=== PATIENT | female | born 1960 | race Caucasian/White ===

== ENCOUNTER 2016-09-28 13:03 | Emergency (ER) | payer OTHER ==
[~2016-09-28] VITALS: Ht 172.7 cm; Wt 93.0 kg
[~2016-09-28 13:03] MED LIST: AZITHROMYCIN250 MG PO; CLONIDINE HCL0.2 MG PO; LISINOPRIL20 MG PO; METOPROLOL SUCC25 MG PO; PERCOCET 5-3251 EACH PO; PRAVASTATIN SOD10 MG; TRAMADOL HCL50 MG PO; TRAZODONE HCL50 MG; VICODIN 5-5001 EACH PO; ZANTAC150 MG PO
[2016-09-28] MEDS ORDERED: ZOFRAN ODT4 MG PO (14:53)
== END 2016-09-28 15:06 | disposition home or self-care (01) ==
LOC: ED 13:03
DX: S09.90XA Unspecified injury of head, initial encounter (principal); F10.10 Alcohol abuse, uncomplicated; I10 Essential (primary) hypertension; E78.00 Pure hypercholesterolemia, unspecified; F17.200 Nicotine dependence, unspecified, uncomplicated; W01.198A Fall on same level from slipping, tripping and stumbling with subsequent striking against other object, initial encounter; Z90.49 Acquired absence of other specified parts of digestive tract; Z88.0 Allergy status to penicillin; Z79.899 Other long term (current) drug therapy
CPT/HCPCS: 70450; 96372; 99284; J1885

== ENCOUNTER 2017-03-26 23:13 | Emergency (ER) | payer OTHER ==
[~2017-03-26] VITALS: Ht 172.7 cm; Wt 93.0 kg
[~2017-03-26 23:13] MED LIST changes: +ZOFRAN ODT4 MG PO
--- OUTSIDE RECORDS SUMMARY | 2017-03-27 00:01 | XMS | Clinical Summary ---
Demographics + + + | Address | [address] | | | [place] [address] | + + + | Home Phone | | + + + | Preferred Language | Unknown | + + + | Marital Status | Single | + + + | Mandaeism Affiliation | Unknown | + + + | Race | White | + + + | Ethnic Group | Not or | + + + Author + + + | Author | [facility] | + + + | Organization | [facility] | + + + | Address | Unknown | + + + | Phone | Unavailable | + + + Support +------+ +---------+ + | Name | Relationship | Address | Phone | +------+ +---------+ + ECON | Unknown | | +------+ +---------+ + Care Team Providers + +------+ + | Care Magnetic Tape Composer Operator Name | Role | Phone | + +------+ + | Veronica Galan | PP | Unavailable | + +------+ + Source Comments JAMIE is fully live on both [facility] and [facility] Allergies + + + + + + | Active Allergy | Reactions | Severity | Noted | Comments | | | | | Date | | + + + + + + | Penicillin | Rash | | 20 | | | | | | 17 | | + + + + + + Current Medications + + +--------+---------+------+------+-------+ | Prescription | Sig. | Disp. | Refills | Star | End | Statu | | | | | | t | Date | s | | | | | | Date | | | + + +--------+---------+------+------+-------+ | tretinoin 0.025 % | Apply topically at | 20 g | 11 | 05/0 | | Activ | | topical cream | bedtime. Wash face | | | 5/20 | | e | | | with mild soap. Pat | | | 17 | | | | | dry. Wait 20-30 min | | | | | | | | to apply. Avoid | | | | | | | | eyes, nostrils, & | | | | | | | | mouth. | | | | | | + + +--------+---------+------+------+-------+ Active Problems Not on file Social History + +-------+ +--------+------+ | Tobacco Use | Types | Packs/Day | Years | Date | | | | | Used | | + +-------+ +--------+------+ | Current Every Day | | | | | | Smoker | | | | | + +-------+ +--------+------+ + + +---------+ + | Alcohol Use | Drinks/We | oz/Week | Comments | | | ek | | | + + +---------+ + | Yes | 1 | 0.6 | | | | Standard | | | | | drinks or | | | | | | | | | | equivalen | | | | | t | | | + + +---------+ + + + + | Sex Assigned at | Date Recorded | | | | + + + | Not on file | | + + + Last Filed Vital Signs + + + + | Vital Sign | Reading | Time Taken | + + + + | Blood Pressure | - | - | + + + + | Pulse | - | - | + + + + | Temperature | - | - | + + + + | Respiratory Rate | - | - | + + + + | Oxygen Saturation | - | - | + + + + | Inhaled Oxygen | - | - | | Concentration | | | + + + + | Weight | 94.3 kg (208 lb) | 07/17/2016 10:53 AM PDT | + + + + | Height | 171.5 cm (5' 7.5") | 07/17/2016 10:53 AM PDT | + + + + | Body Mass Index | 32.1 | 07/17/2016 10:53 AM PDT | + + + + Plan of Treatment + + + + + | Health Maintenance | Due Date | Last Done | Comments | + + + + + | INFLUENZA VACCINE | | | | | (FLU SHOT) | 7 | | | + + + + + Results Not on filefrom Last 3 Months
--- OUTSIDE RECORDS SUMMARY | 2017-03-27 00:01 | XMS | Clinical Summary ---
Demographics + + + | Address | [address] | | | [place] [address] | + + + | Home Phone | | + + + | Preferred Language | Unknown | + + + | Marital Status | Single | + + + | Cheondoism Affiliation | Unknown | + + + | Race | White | + + + | Ethnic Group | Not or | + + + Author + + + | Author | [facility] | + + + | Organization | [facility] | + + + | Address | Unknown | + + + | Phone | Unavailable | + + + Support +------+ +---------+ + | Name | Relationship | Address | Phone | +------+ +---------+ + ECON | Unknown | | +------+ +---------+ + Care Team Providers + +------+ + | Care Retail Performance Specialist Name | Role | Phone | + +------+ + | Veronica Galan | PP | Unavailable | + +------+ + Source Comments JAMIE is fully live on both [facility] Amb[facility] and [facility] InPatient.[facility] Allergies + + + + + + [...]
== END 2017-03-27 00:40 | disposition home or self-care (01) ==
LOC: ED 23:13
DX: S00.11XA Contusion of right eyelid and periocular area, initial encounter (principal); I10 Essential (primary) hypertension; E78.00 Pure hypercholesterolemia, unspecified; F17.200 Nicotine dependence, unspecified, uncomplicated; Z90.49 Acquired absence of other specified parts of digestive tract; Z88.0 Allergy status to penicillin; Z79.899 Other long term (current) drug therapy; W01.0XXA Fall on same level from slipping, tripping and stumbling without subsequent striking against object, initial encounter; Y93.02 Activity, running
CPT/HCPCS: 70450; 99284

== ENCOUNTER 2019-09-23 02:24 | Emergency (ER) | payer OTHER ==
[~2019-09-23] VITALS: Ht 172.7 cm; Wt 97.1 kg
--- OUTSIDE RECORDS SUMMARY | ~2019-09-23 | XMS | Clinical Summary ---
Demographics + + + | Address | [address] | | | [place] [address] | + + + | Home Phone | | + + + | Preferred Language | Unknown | + + + | Marital Status | Single | + + + | Episcopal Affiliation | Unknown | + + + | Race | White | + + + | Ethnic Group | Not or | + + + Author + + + | Author | [facility] | + + + | Organization | [facility] | + + + | Address | Unknown | + + + | Phone | Unavailable | + + + Support + + +---------+ + | Name | Relationship | Address | Phone | + + +---------+ + | Theodore Rodriguez | ECON | Unknown | | + + +---------+ + Care Team Providers + +------+ + | Care Labor Delivery Specialist Name | Role | Phone | + +------+ + | Veronica Galan | PCP | | + +------+ + Source Comments JAMIE is fully live on both [facility] and [facility] Allergies + + + + + + | Active Allergy | Reactions | Severity | Noted | Comments | | | | | Date | | + + + + + + | Penicillin | Rash | | 05//20 | | | | | | 17 | | + + + + + + Medications + + + +---------+------+------+-------+ | Medication | Sig | Dispensed | Refills | Star | End | Statu | | | | | | t | Date | s | | | | | | Date | | | + + + +---------+------+------+-------+ | tretinoin 0.025 % | Apply topically [...] | | | | | + + + +---------+------+------+-------+ Active Problems Not on file Social History + +-------+ +--------+------+ | Tobacco Use | Types | Packs/Day | Years | Date | | | | | Used | | + +-------+ +--------+------+ | Current Every Day | | | | | | Smoker | | | | | + +-------+ +--------+------+ + + +---------+ + | Alcohol Use | Drinks/Week | oz/Week | Comments | + + +---------+ + | Yes | 1 Standard drinks | 1.0 | | | | or equivalent | | | + + +---------+ + + + + | Sex Assigned at | Date Recorded | | | | + + + | Not on file | | + + + + + + + | Job Start Date | Occupation | Industry | + + + + | Not on file | Not on file | Not on file | + + + + + + + + | Travel History | Travel Start | Travel End | + + + + + + | No recent travel history available. | + + Last Filed Vital Signs + + + + + | Vital Sign | Reading | Time Taken | Comments | + + + + + | Blood Pressure | - | - | | + + + + + | Pulse | - | - | | + + + + + | Temperature | - | - | | + + + + + | Respiratory Rate | - | - | | + + + + + | Oxygen Saturation | - | - | | + + + + + | Inhaled Oxygen | - | - | | | Concentration | | | | + + + + + | Weight | 94.3 kg (208 lb) | 07/17/2016 10:53 AM | | | | | PDT | | + + + + + | Height | 171.5 cm (5' 7.5") | 07/17/2016 10:53 AM | | | | | PDT | | + + + + + | Body Mass Index | 32.1 | 07/17/2016 10:53 AM | | | | | PDT | | + + + + + Plan of Treatment + + + + + | Health Maintenance | Due Date | Last Done | Comments | + + + + + | Pneumococcal | | | | | vaccination (1 of 1 | 8 | | | | - PPSV23) | | | | + + + + + | Influenza (Flu) | | | | | vaccination (#1) | 9 | | | + + + + + Results Not on filefrom Last 3 Months Insurance + +--------+ +--------+-------+---------+--------+ | Payer | Benefi | Subscriber | Effect | Phone | Address | Type | | | t Plan | ID | brianna | | | | | | / | | Dates | | | | | | Group | | | | | | + +--------+ +--------+-------+---------+--------+ | AIRVEYOR OPERATOR MEDICAID | AIRVEYOR OPERATOR | xxxxxxxx | Effect | | | Medica | | | EAST[place] | | [place] | | | id | | | [place] | | for | | | | | | | | all | | | | | | | | dates | | | | + +--------+ +--------+-------+---------+--------+ + +--------+ +--------+ + + | Guarantor Name | Accoun | Relation to | Date | Phone | Billing Address | | | t Type | Patient | of | | | | | | | | | | + +--------+ +--------+ + + | Anitha Ragland | Person [birth year] Self [birth year] | [address] | | | al/Fam | | 1961 | [phone] | [address] [place] | | | hilario | | | 2 (Home) | [phone] | | | | | [phone] | | | | | | | 0 (Work) | | + +--------+ +--------+ + +
--- OUTSIDE RECORDS SUMMARY | ~2019-09-23 | XMS | Encounter Summary ---
Demographics + + + | Address | [address] | | | [place] [address] | + + + | Home Phone | | + + + | Preferred Language | Unknown | + + + | Marital Status | Single | + + + | Islam Affiliation | Unknown | + + + | Race | White | + + + | Ethnic Group | Not or | + + + Author + + + | Author | [facility] | + + + | Organization | [facility] | + + + | Address | Unknown | + + + | Phone | Unavailable | + + + Support + + +---------+ + | Name | Relationship | Address | Phone | + + +---------+ + | Theodore Rodriguez | ECON | Unknown | | + + +---------+ + Care Team Providers + +------+ + | Care Ornament Stapler Name | Role | Phone | + +------+ + | Veronica Galan | PCP | | + +------+ + Encounter Details +--------+ + + + + | Date | Type | Department | Care Team | Description | +--------+ + + + + | 06/10/ | Document-Sc | Dermatology at | [facility] | | | 2017 | anned | [facility] | [facility] | | | | | Clinic [address] | | | | | [address] [place] | | | | | | [address] | | | | | | [phone] | | | +--------+ + + + + Social History + +-------+ +--------+------+ | Tobacco Use | Types | Packs/Day | Years | Date | | | | | Used | | + +-------+ +--------+------+ | Never Assessed | | | | | + +-------+ +--------+------+ + + + | Sex Assigned at [...] recent travel history available. | + + documented as of this encounter Plan of Treatment Not on filedocumented as of this encounter Visit Diagnoses Not on filedocumented in this encounter"
--- OUTSIDE RECORDS SUMMARY | ~2019-09-23 | XMS | Encounter Summary ---
Demographics + + + | Address | [address] | | | [place] [address] | + + + | Home Phone | | + + + | Preferred Language | Unknown | + + + | Marital Status | Single | + + + | Church Affiliation | Unknown | + + + | Race | White | + + + | Ethnic Group | Not or | + + + Author + + + | Author | [facility] | + + + | Organization | [facility] | + + + | Address | Unknown | + + + | Phone | Unavailable | + + + Support + + +---------+ + | Name | Relationship | Address | Phone | + + +---------+ + | Theodore Rodriguez | ECON | Unknown | | + + +---------+ + Care Team Providers + +------+ + | Care Dray Driver Name | Role | Phone | + [...] | | | skin | medicine | [place], [place] | | | | | | [address] | [address] | | | | | | [address] | | | | | | | [address] | | | | | | | [place], | | | | | | | [place] [address] | | | | | | | Phone: | | | | | | | [phone] | | | | | | | Fax: | | | | | | | [phone] | | +--------+ + + + + + Encounter Details +--------+---------+ + + + | Date | Type | Department | Care Team | Description | +--------+---------+ + + + | 07/17/ | Office | Dermatology at | [facility] | Multiple nevi | | 2017 | Visit | [facility] | [facility] | (Primary Dx); | | | | Clinic [address] | | [address]aceous | | | | [address] [place] | | hyperplasia; Other | | | | [address] | | seborrheic keratosis | | | | [phone] | | | +--------+---------+ + + + [...] skin compla ints. She grew up in [place] and [facility]. They have history of tanning bed [...] or fail to improve. Johanna Elena MD Welcome Hostess Department of Dermatology [facility] & Science [place] Electronically signed by Johanna Elena MD at 2016 1:33 PM PDTdocumented in this encounter Plan of Treatment Not on filedocumented as of this encounter Procedures + +--------+ + + + | Procedure Name | Priori | Date/Time | Associated Diagnosis | Comments | | | ty | | | | + +--------+ + + + | [place] DESTRUC BENIGN | Routin | 07/17/2016 | [...]
--- OUTSIDE RECORDS SUMMARY | ~2019-09-23 | XMS | Clinical Summary ---
Demographics + + + | Address | [address] | | | [place] [address] | + + + | Home Phone | | + + + | Preferred Language | Unknown | + + + | Marital Status | Single | + + + | Yarsani Affiliation | Unknown | + + + | Race | White | + + + | Ethnic Group | Not or | + + + Author + + + | Author | [facility] | + + + | Organization | [facility] | + + + | Address | Unknown | + + + | Phone | Unavailable | + + + Support + + +---------+ + | Name | Relationship | Address | Phone | + + +---------+ + | Theodore Rodriguez | ECON | Unknown | | + + +---------+ + Care Team Providers + +------+ + | Care Ballroom Dancer Name | Role | Phone | + +------+ + | Veronica Galan | PCP | | + +------+ + Source Comments JAMIE is fully live on both [facility] Ambulatory and [facility] InPatient.[facility] Allergies + + + [...] | | | + +--------+ +--------+-------+---------+--------+ | INSTRUCTOR ADJUNCT SURGICAL TECHNICIAN MEDICAID | INSTRUCTOR ADJUNCT SURGICAL TECHNICIAN | xxxxxxxx | Effect | | [...] | | al/Fam | | 1961 | [phone] | [address] [place] | | | hilario | | | 2 (Home) | [address] | | | | | | [phone] | | | | | | | 0 (Work) | | + +--------+ +--------+ + +
--- OUTSIDE RECORDS SUMMARY | ~2019-09-23 | XMS | Encounter Summary ---
Demographics + + + | Address | [address] | | | [place] [address] | + + + | Home Phone | | + + + | Preferred Language | Unknown | + + + | Marital Status | Single | + + + | Zoroastrianism Affiliation | Unknown | + + + | Race | White | + + + | Ethnic Group | Not or | + + + Author + + + | Author | [facility] | + + + | Organization | [facility] | + + + | Address | Unknown | + + + | Phone | Unavailable | + + + Support + + +---------+ + | Name | Relationship | Address | Phone | + + +---------+ + | Theodore Rodriguez | ECON | Unknown | | + + +---------+ + Care Team Providers + +------+ + | Care Elevator Service Mechanic Name | Role | Phone | + [...] | | | skin | medicine | [place], [place] | | | | | | [address] | [address] | | | | | | [address] | | | | | | | [address] | | | | | | | [place], | | | | | | | [place] [address] | | | | | | | Phone: | | | | | | | [phone] | | | | | | | Fax: | | | | | | | [phone] | | +--------+ + + + + + Encounter Details +--------+---------+ + + + | Date | Type | Department | Care Team | Description | +--------+---------+ + + + | 07/17/ | Office | Dermatology at | [facility] | Multiple nevi | | 2017 | Visit | [facility] | [facility] | (Primary Dx); | | | | Clinic [address] | | Se[address]aceous | | | | [address] [place] | | hyperplasia; Other | | | | [address] | | seborrheic keratosis | | | | [phone] | | | +--------+---------+ + + + [...] skin compla ints. She grew up in [place] and [facility]. They have [...] or fail to improve. Johanna Elena MD Paint Line Operator Department of Dermatology [facility] [place] Electronically signed by Johanna Elena MD at 2016 1:33 PM PDTdocumented in this encounter Plan of Treatment Not on filedocumented as of this encounter Procedures + +--------+ + + + | Procedure Name | Priori | Date/Time | Associated Diagnosis | Comments | | | ty | | | | + +--------+ + + + | IA DESTRUC BENIGN | Routin | 07/17/2016 | [...]
--- OUTSIDE RECORDS SUMMARY | ~2019-09-23 | XMS | Encounter Summary ---
Demographics + + + | Address | [address] | | | [place] [address] | + + + | Home Phone | | + + + | Preferred Language | Unknown | + + + | Marital Status | Single | + + + | Uatsdin Affiliation | Unknown | + + + [...] Team Providers + +------+ + | Care Subassemblies Wirer Name | Role | Phone | + +------+ + | Veronica Galan | PCP | | + +------+ + Encounter Details +--------+ + + + + | Date | Type | Department | Care Team | Description | +--------+ + + + + | 06/10/ | Document-Sc | Dermatology at | [facility] | | | 2017 | anned | [facility] | [facility] | | | | | Clinic [address] | | | | | [address] [place] | | | | | | [address] | | | | | | [phone] | | | +--------+ + + + [...]
[~2019-09-23 02:24] MED LIST changes: +CRUTCH1 EACH MISC; +FLUOXETINE HCL60 MG PO; +FLUTICASONE P15.8 ML NAS; +GABAPENTIN600 MG PO; +HYDROMORPHONE HC4 MG PO; -LISINOPRIL20 MG PO; +LISINOPRIL40 MG PO; +NEURONTIN300 MG PO; +NICOTINE PATCH1 EAC1 TD; +NORCO 5-325 TA1 EACH PO; +NORCO 7.5-3251 EACH PO; +OXYCODONE HCL5 MG PO; -PRAVASTATIN SOD10 MG; +PRAVASTATIN SOD40 MG PO; +VENTOLIN HFA18 GM INH; +XARELTO10 MG PO; +ZANTAC 7575 MG PO
--- OUTSIDE RECORDS SUMMARY | 2019-09-23 02:26 | XMS ---
PreManage Notification: TONEY HAY Security Veterinary Assistant Technician Events No recent Security Events currently on file CRITERIA MET - PDMP CARE PROVIDERS CHRISTOFER NEGRON Physician Dat Instructor 07/17/2016-Current PHONE: Unknown Gautam has no Care Guidelines for this patient. [facility] VISIT COUNT (12 MO.) 1 [facility] TOTAL 1 NOTE: Visits indicate total known visits. ED/UCC VISIT TRACKING (12 MO.) 09/23/2019 02:24 [facility] [place] TYPE: Emergency COMPLAINT: - COUGH INPATIENT VISIT TRACKING (12 MO.) No inpatient visits to display in this time frame [email or web address]
[2019-09-23] MEDS ORDERED: GUAIFENESIN AC473 ML PO (02:50)
== END 2019-09-23 03:09 | disposition home or self-care (01) ==
LOC: ED 02:24
DX: R05 Cough (principal); I10 Essential (primary) hypertension; F17.200 Nicotine dependence, unspecified, uncomplicated; Z91.030 Bee allergy status; Z88.0 Allergy status to penicillin; Z79.899 Other long term (current) drug therapy
CPT/HCPCS: 99283; C9803; U0002

== ENCOUNTER 2019-09-23 16:14 | Observation (INO) | payer OTHER ==
[~2019-09-23] VITALS: Ht 172.7 cm; Wt 101.6 kg
--- OUTSIDE RECORDS SUMMARY | ~2019-09-23 | XMS | Clinical Summary ---
Demographics + + + | Address | [address] | | | [place] [address] | + + + | Home Phone | | + + + | Preferred Language | Unknown | + + + | Marital Status | Single | + + + | Presybeterian Affiliation | Unknown | + + + | Race | White | + + + | Ethnic Group | Not or | + + + Author + + + | Author | [facility] | + + + | Organization | [facility] | + + + | Address | Unknown | + + + | Phone | Unavailable | + + + Support + + +---------+ + | Name | Relationship | Address | Phone | + + +---------+ + | Theodore Rodriguez | ECON | Unknown | | + + +---------+ + Care Team Providers + +------+ + | Care Field Associate Name | Role | Phone | + +------+ + | Veronica Galan | PCP | | + +------+ + Source Comments JAMIE is fully live on both [facility] Ambulatory and [facility] InPatient.[facility] Allergies + + + + + [...] | | | + +--------+ +--------+-------+---------+--------+ | DRAGLINE OPERATOR MEDICAID | DRAGLINE OPERATOR | xxxxxxxx | Effect | | [...] | | al/Fam | | 1961 | [phone] | [address] [place] | | | hilar[place] | | | 2 (Home) | [id number] | | | | | | [phone] | | | | | | | 0 (Work) | | + +--------+ +--------+ + +
--- OUTSIDE RECORDS SUMMARY | ~2019-09-23 | XMS | Encounter Summary ---
Demographics + + + | Address | [address] | | | [place] [address] | + + + | Home Phone | | + + + | Preferred Language | Unknown | + + + | Marital Status | Single | + + + | Adventism Affiliation | Unknown | + + + | Race | White | + + + | Ethnic Group | Not or | + + + Author + + + | Author | [facility] | + + + | Organization | [facility] | + + + | Address | Unknown | + + + | Phone | Unavailable | + + + Support + + +---------+ + | Name | Relationship | Address | Phone | + + +---------+ + | Theodore Rodriguez | ECON | Unknown | | + + +---------+ + Care Team Providers + +------+ + | Care Cereal Maker Name | Role | Phone | + +------+ + | Veronica Galan | PCP | | + +------+ + Encounter Details +--------+ + + + + | Date | Type | Department | Care Team | Description | +--------+ + + + + | 06/10/ | Document-Sc | Dermatology at | [facility] | | | 2017 | anned | [place] [facility] | [facility] | | | | | Clinic [address] | | | | | [address] [place] | | | | | | [address] | | | | | | [phone] | | | +--------+ + + + [...]
--- OUTSIDE RECORDS SUMMARY | ~2019-09-23 | XMS | Encounter Summary ---
Demographics + + + | Address | [address] | | | [place] [address] | + + + | Home Phone | | + + + | Preferred Language | Unknown | + + + | Marital Status | Single | + + + | Buddhism Affiliation | Unknown | + + + | Race | White | + + + | Ethnic Group | Not or | + + + Author + + + | Author | [facility] | + + + | Organization | [facility] | + + + | Address | Unknown | + + + | Phone | Unavailable | + + + Support + + +---------+ + | Name | Relationship | Address | Phone | + + +---------+ + | Theodore Rodriguez | ECON | Unknown | | + + +---------+ + Care Team Providers + +------+ + | Care Supervisor Mold Construction Name | Role | Phone | + [...] | | | skin | medicine | [place], [place] | | | | | | [address] | [address] | | | | | | [address] | | | | | | | [address] | | | | | | | [place], | | | | | | | [place] [address] | | | | | | | Phone: | | | | | | | [phone] | | | | | | | Fax: | | | | | | | [phone] | | +--------+ + + + + + Encounter Details +--------+---------+ + + + | Date | Type | Department | Care Team | Description | +--------+---------+ + + + | 07/17/ | Office | Dermatology at | [facility] | Multiple nevi | | 2017 | Visit | [facility] | [facility] | (Primary Dx); | | | | Clinic [address] | [address] | | | | [address] [place] | | hyperplasia; Other | | | | [address] | | seborrheic keratosis | | | | [phone] | | | +--------+---------+ + + + [...] compla ints. She grew up in [place] and [facility]. They have history of tanning bed [...] or fail to improve. Johanna Elena MD Cage Fighter Department of Dermatology [facility] & Science [place] Electronically signed by Johanna Elena MD at 2016 1:33 PM PDTdocumented in this encounter Plan of Treatment Not on filedocumented as of this encounter Procedures + +--------+ + + + | Procedure Name | Priori | Date/Time | Associated Diagnosis | Comments | | | ty | | | | + +--------+ + + + | [place] DESTRUC BENIGN | Routin | 07/17/2016 | [...]
--- OUTSIDE RECORDS SUMMARY | ~2019-09-23 | XMS | Encounter Summary ---
Demographics + + + | Address | [address] | | | [place] [address] | + + + | Home Phone | | + + + | Preferred Language | Unknown | + + + | Marital Status | Single | + + + | Pentecostal Affiliation | Unknown | + + + | Race | White | + + + | Ethnic Group | Not or | + + + Author + + + | Author | [facility] | + + + | Organization | [facility] | + + + | Address | Unknown | + + + | Phone | Unavailable | + + + Support + + +---------+ + | Name | Relationship | Address | Phone | + + +---------+ + | Theodore Rodriguez | ECON | Unknown | | + + +---------+ + Care Team Providers + +------+ + | Care Staff Radiation Therapist Name | Role | Phone | + +------+ + | Veronica Galan | PCP | | + +------+ + Encounter Details +--------+ + + + + | Date | Type | Department | Care Team | Description | +--------+ + + + + | 06/10/ | Document-Sc | Dermatology at | [facility] | | | 2017 | anned | [place] [facility] | [facility] | | | | | Clinic [address] | | | | | [address] [place] | | | | | | [address] | | | | | | [phone] | | | +--------+ + + + [...]
--- OUTSIDE RECORDS SUMMARY | ~2019-09-23 | XMS | Encounter Summary ---
Demographics + + + | Address | [address] | | | [place] [address] | + + + | Home Phone | | + + + | Preferred Language | Unknown | + + + | Marital Status | Single | + + + | Taoist Affiliation | Unknown | + + + | Race | White | + + + | Ethnic Group | Not or | + + + Author + + + | Author | [facility] | + + + | Organization | [facility] | + + + | Address | Unknown | + + + | Phone | Unavailable | + + + Support + + +---------+ + | Name | Relationship | Address | Phone | + + +---------+ + | Theodore Rodriguez | ECON | Unknown | | + + +---------+ + Care Team Providers + +------+ + | Care Enterprise Architect Manager Name | Role | Phone | + [...] | | | skin | medicine | [place], [place] | | | | | | [address] | [address] | | | | | | [address] | | | | | | | [address] | | | | | | | [place], | | | | | | | [place] [address] | | | | | | | Phone: | | | | | | | [phone] | | | | | | | Fax: | | | | | | | [phone] | | +--------+ + + + + + Encounter Details +--------+---------+ + + + | Date | Type | Department | Care Team | Description | +--------+---------+ + + + | 07/17/ | Office | Dermatology at | [facility] | Multiple nevi | | 2017 | Visit | [place] [facility] | [facility] | (Primary Dx); | | | | Clinic [address] | [address] | | | | [address] [place] | | hyperplasia; Other | | | | [address] | | seborrheic keratosis | | | | [phone] | | | +--------+---------+ + + + [...] skin compla ints. She grew up in [place] and [facility]. They have history of tanning bed use, [...] or fail to improve. Johanna Elena MD Kettle Loader Department of Dermatology [facility] & Science [place] Electronically signed by Johanna Elena MD at 2016 1:33 PM PDTdocumented in this encounter Plan of Treatment Not on filedocumented as of this encounter Procedures + +--------+ + + + | Procedure Name | Priori | Date/Time | Associated Diagnosis | Comments | | | ty | | | | + +--------+ + + + | [place] DESTRUC BENIGN | Routin | 07/17/2016 | [...]
--- OUTSIDE RECORDS SUMMARY | ~2019-09-23 | XMS | Encounter Summary ---
Demographics + + + | Address | [address] | | | [place] [address] | + + + | Home Phone | | + + + | Preferred Language | Unknown | + + + | Marital Status | Single | + + + | Pentecostalism Affiliation | Unknown | + + + | Race | White | + + + | Ethnic Group | Not or | + + + Author + + + | Author | [facility] | + + + | Organization | [facility] | + + + | Address | Unknown | + + + | Phone | Unavailable | + + + Support + + +---------+ + | Name | Relationship | Address | Phone | + + +---------+ + | Theodore Rodriguez | ECON | Unknown | | + + +---------+ + Care Team Providers + +------+ + | Care Manufacturers Agent Name | Role | Phone | + [...] | | | skin | medicine | [place], [place] | | | | | | [address] | [address] | | | | | | [address] | | | | | | | [address] | | | | | | | [place], | | | | | | | [place] [address] | | | | | | | Phone: | | | | | | | [phone] | | | | | | | Fax: | | | | | | | [phone] | | +--------+ + + + + + Encounter Details +--------+---------+ + + + | Date | Type | Department | Care Team | Description | +--------+---------+ + + + | 07/17/ | Office | Dermatology at | [facility] | Multiple nevi | | 2017 | Visit | [place] [facility] | [facility] | (Primary Dx); | | | | Clinic [address] | [address] | | | | [address] [place] | | hyperplasia; Other | | | | [address] | | seborrheic keratosis | | | | [phone] | | | +--------+---------+ + + + [...] skin compla ints. She grew up in [place] and [facility]. They have history of tanning bed [...] or fail to improve. Johanna Elena MD Area Director Department of Dermatology [facility] & Science [place] Electronically signed by Johanna Elena MD at [...]
--- OUTSIDE RECORDS SUMMARY | ~2019-09-23 | XMS | Encounter Summary ---
Demographics + + + | Address | [address] | | | [place] [address] | + + + | Home Phone | | + + + | Preferred Language | Unknown | + + + | Marital Status | Single | + + + | Mandaen Affiliation | Unknown | + + + [...] Team Providers + +------+ + | Care Judicial Registrar Name | Role | Phone | + +------+ + | Veronica Galan | PCP | | + +------+ + Encounter Details +--------+ + + + + | Date | Type | Department | Care Team | Description | +--------+ + + + + | 06/10/ | Document-Sc | Dermatology at | [facility] | | | 2017 | anned | [facility] | [facility] | | | | | Clinic [address] | | | | | | [address] [place] | | | | | | [address] | | | | | | [phone] | | | +--------+ + + + [...]
--- OUTSIDE RECORDS SUMMARY | ~2019-09-23 | XMS | Clinical Summary ---
Demographics + + + | Address | [address] | | | [place] [address] | + + + | Home Phone | | + + + | Preferred Language | Unknown | + + + | Marital Status | Single | + + + | Jain Affiliation | Unknown | + + + | Race | White | + + + | Ethnic Group | Not or | + + + Author + + + | Author | [facility] | + + + | Organization | [facility] | + + + | Address | Unknown | + + + | Phone | Unavailable | + + + Support + + +---------+ + | Name | Relationship | Address | Phone | + + +---------+ + | Theodore Rodriguez | ECON | Unknown | | + + +---------+ + Care Team Providers + +------+ + | Care Roaster Operator Name | Role | Phone | + +------+ + | Veronica Galan | PCP | | + +------+ + Source Comments JAMIE is fully live on both [facility] Amb[facility] and [facility] InPatient.[facility] Allergies + + + + + [...] | | | + +--------+ +--------+-------+---------+--------+ | REFERRAL MANAGER MEDICAID | REFERRAL MANAGER | xxxxxxxx | Effect | | | [...] | | al/Fam | | 1961 | [phone] | [address] [place] | | | [place] | | | 2 (Home) | [address] | | | | | | [phone] | | | | | | | 0 (Work) | | + +--------+ +--------+ + +
--- OUTSIDE RECORDS SUMMARY | ~2019-09-23 | XMS | Clinical Summary ---
Demographics + + + | Address | [address] | | | [place] [address] | + + + | Home Phone | | + + + | Preferred Language | Unknown | + + + | Marital Status | Single | + + + | Sikh Affiliation | Unknown | + + + | Race | White | + + + | Ethnic Group | Not or | + + + Author + + + | Author | [facility] | + + + | Organization | [facility] | + + + | Address | Unknown | + + + | Phone | Unavailable | + + + Support + + +---------+ + | Name | Relationship | Address | Phone | + + +---------+ + | Theodore Rodriguez | ECON | Unknown | | + + +---------+ + Care Team Providers + +------+ + | Care Demolition Hammer Operator Name | Role | Phone | + +------+ + | Veronica Galan | PCP | | + +------+ + Source Comments JAMIE is fully live on both [facility] Ambulatory and [facility] InPatient.[facility] Allergies + + + + + [...] | | | + +--------+ +--------+-------+---------+--------+ | X RAY ELECTRONICS WIRING TECHNICIAN MEDICAID | X RAY ELECTRONICS WIRING TECHNICIAN | xxxxxxxx | Effect | | [...] | | al/Fam | | 1961 | [phone] | [address] [place] | | | [place] | | | 2 (Home) | [address] | | | | | | [phone] | | | | | | | 0 (Work) | | + +--------+ +--------+ + +
[~2019-09-23 16:14] MED LIST changes: +GUAIFENESIN AC473 ML PO
--- OUTSIDE RECORDS SUMMARY | 2019-09-23 16:16 | XMS ---
PreManage Notification: TONEY HAY Security Care Director Rn Events No recent Security Events currently on file CRITERIA MET - [facility] - 2 Visits in 30 Days CARE PROVIDERS CHRISTOFER NEGRON Physician Savings Teller 07/17/2016-Current PHONE: Unknown Gautam has no Care Guidelines for this patient. [facility] VISIT COUNT (12 MO.) 2 [facility] TOTAL 2 NOTE: Visits indicate total known visits. ED/UCC VISIT TRACKING (12 MO.) 09/23/2019 16:14 [facility] [place] TYPE: Emergency COMPLAINT: - SOB 09/23/2019 02:24 [facility] [place] TYPE: Emergency COMPLAINT: - COUGH INPATIENT VISIT TRACKING (12 MO.) No inpatient visits to display in this time frame [email or web address]
--- NOTE | 2019-09-23 21:04 | NUR ---
pt arrived via stretcher with supervisor brew house. able to ambulate from stretcher to bed. Pt heartrate in the 130s, blood pressure elevated, low grade temperature of 99.2. pt saturations 97 percent on room air. unable to auscultate lungs due to Papr. Pt unable to stop coughing during assessment. IV bolus finished infusing, pt now on d5 Lr at 125/ hr. pt up to commode independently. plan of care established. medications administered. assessment completed. call light within reach. no furhther needs at this time.
--- NOTE | 2019-09-23 22:00 | NUR ---
PT COUGHING HAS DECREASED AFTER PRN MEDICATION AND BREATHING TREATMENT WAS ADMINISTERED. HEART RATE 118-120. PT BLOOD PRESSURE HAS DECREASED TO 167/78 (100). PT SATURATIONS AT 96 PERCENT ON ROOM AIR. CALL LIGHT WITHIN REACH. IV FLUIDS INFUSING. NO FURTHER NEEDS AT THIS TIME.
--- NOTE | 2019-09-23 23:14 | NUR ---
PT HEART RATE HAS DECREASED INTO THE 110'S, BLOOD PRESSURE WNL. GIVEN A SANDWICH BOX AT THIS TIME. NO DECREASES IN OXYGEN SATURATIONS WITH EATING. CALL LIGHT WITHIN REACH. NO FURTHER NEEDS AT THIS TIME.
--- NOTE | 2019-09-24 00:23 | NUR ---
IN ROOM FOR ASSESSMENT AND MEDICATION ADMINISTRATION. PTS COUGHING IS NOW INTERMITTENT. DENISED SHORTNESS OF BREATH. LOW GRADE TEMPERATURE OF 99.8. TYLENOL GIVEN AT THIS TIME. PT REMAINS TACHYCARDIC. BREATHING TX ADMINISTERED. CALL LIGHT WITHIN REACH. NO FURTHER NEEDS AT THIS TIME.
--- NOTE | 2019-09-24 00:55 | NUR ---
CALL LIGHT ON. pt REPORTED THAT SHE HAD SPILLED WATER. FRESH WATER PROVIDED. GOWN AND LINENS CHANGED. pt REQUESTED PRN MEDICATION FOR COUGH, GIVEN (SEE MAR). pt REPORTED THAT SHE WOULD BE GETTING UP TO VOID IN A MINUTE. NO FURTHER REQUESTS AT THIS TIME. CALL LIGHT WITHIN REACH.
--- NOTE | 2019-09-24 03:24 | NUR ---
TELE LEADS OFF. pt REPORTED THAT SHE WAS REALLY SWEATY. ASSISTED pt TO CLEAN UP AND PLACED NEW LEADS. TALKED TO pt ABOUT CURRENT ILLNESS AND HER NEW JOB. PROVIDED WITH DIET SODA PER REQUEST. CALL LIGHT WITHIN REACH.
--- NOTE | 2019-09-24 04:05 | NUR ---
PT WAS BROUGHT OVER FROM CCU. SHE WAS TOLD TO CALL IF SHE NEEDS ANYTHING. WILL RETURN TO ADMINISTER ROBITUSSIN WHEN IT IS DUE.
--- NOTE | 2019-09-24 06:00 | NUR ---
ADMINISTERED COUGH MED AND SOLUMEDROL. PT DENIES PAIN. SEE ASSESSMENT. PT DENIES SOB. VS ARE STABLE AND PT DENIES FURTHER NEEDS AT THIS TIME. CALL LIGHT IS CLOSE.
--- NOTE | 2019-09-24 08:59 | NUR ---
PT IS ALERT SITTING UP IN ROOM EATING BREAKFAST, RT IN FOR SCHEDULED NEB, PT DENIES RSP DISTRESS, R-18, HR 120'S FOLLOWING NEB, COVID NEG RESULTS THIS AM, DOING WELL ON ROOM AIR, DENIES ANY NEEDS. CALL LIGHT IN EASY REACH.
--- NOTE | 2019-09-24 09:35 | NUR ---
PT LAYING ON BED C/O FEELING VERY WEAK, OCCASIONAL HARSH COUGH, MAINTAING OXIMETER 95% ON RA, REMAINS AFEBRILE HR-124, CALL PLACED TO DR ROUSE AND HE WILL ORDER LOPRESSOR FOR HR.
--- NOTE | 2019-09-24 09:47 | NUR ---
METOPROLOL GIVEN, UP TO BSC, CONT. TO BE VERY WEAK, INC COUGH WITH ACTIVITY, ROBITUSSIN GIVEN, POSITIONED FOR COMFORT OB BED, WANTS TO NAP, STATES SHE IS VERY TIRED. CALL LIGHT IN EASY REACH. TELE#6 HRR-124.
--- NOTE | 2019-09-24 12:58 | NUR ---
PT WOKE AND SAT ON EDGE OF BED FOR LUNCH, C/O MILD HEADACHE, V/S TAKEN AND REPORTED TO DR ROUSE, HR-120'S AFTER METOPROLOL. TAKING PO WELL, GOOD OUTPUT, ATE 100% OF LUNCH, REMAINS ON ROOM AIR. DENIES ANY NEEDS. JUST STATES SHE WANTS TO SLEEP, CONT. TO FEEL WEAK.
--- NOTE | 2019-09-24 15:20 | NUR ---
PT REQUESTED TO TAKE A SHOWER, C/O FEELING HOT AND ACHING, NOTD TEMP 100.6. DR ROUSE NOTIFIED. WILL SET PT UP FOR SHOWER.
--- NOTE | 2019-09-24 15:40 | NUR ---
BLOOD DRAWN FOR LABS.
--- NOTE | 2019-09-24 16:14 | NUR ---
RT COLLECTED COVID 19 SWAB AND RAN TO LAB AT THIS TIME.
--- NOTE | 2019-09-24 16:20 | NUR ---
CHEST XRAY DONE, PT UP INTO SHOWER.
--- NOTE | 2019-09-24 18:10 | NUR ---
PT UP FOR SHOWER, DEVELOPED LOW GRADE FEVER, COVID REDONE, CHEST X RAY REPEATED, IV TO SL, TAKING PO WELL, CONT. TO FEEL TIRED, USING CALL LIGHT APPROP.
--- NOTE | 2019-09-24 19:12 | NUR ---
REPORT RECEIVED FROM NURSE BROWN. PT LAYING IN BED IN LEFT LATERAL POSITION.
--- NOTE | 2019-09-24 21:05 | NUR ---
MEDICATIONS DISTRIBUTED AND COUGH SYRUP PROVIDED PER REQUEST OF pt. VSS. pt ON ROOM AIR. COUGH IS INTERMITTENT. pt REPORTS NO PAIN, NO SOB. pt HAS GOOD I&O. NO FURTHER REQUESTS AT THIS TIME.
--- NOTE | 2019-09-24 23:11 | NUR ---
ROUNDS COMPLETE, VIEWED PT THROUGH GLASS DOOR D/T ISOLATION RESTRICTION. PT LAYING LEFT LATERAL, ADJUSTING BED. NO APPARENT SIGNS OF DISTRESS.
--- NOTE | 2019-09-25 02:01 | NUR ---
PT IS SLEEPING ON HER BACK. EVEN UNLABORED BREATHING. NO APPARENT SIGNS OF DISTRESS.
--- NOTE | 2019-09-25 04:20 | NUR ---
ASSESSMENT COMPLETE. PT STATES SHE HAS SLEPT REALLY WELL AND FEELS MUCH BETTER. VSS ALTHOUGH PT STILL HAS TACHYCARDIC EPISODES. TELE INTACT. PT REQUESTS COUGH SYRUP WHICH WAS PROVIDED. PT ALSO REQUESTS PUDDING AND CLARIBEL CRACKERS WHICH WERE ALSO PROVIDED. NO FURTHER REQUESTS AT THIS TIME.
--- NOTE | 2019-09-25 06:18 | NUR ---
CALL LIGHT ANSWERED. PT IS STILL COUGHING. BENZONATATE PRN PROVIDED. PT IS ALSO WORRIED ABOUT A NEW JOB SHE IS SUPPOSED TO START TODAY AND NEEDS A PROTECTION SPECIALIST FOR HER PHONE. STATION PROTECTION SPECIALIST IS PROVIDED. COFFEE AND WATER ALSO BROUGHT ALONG WITH NEW TELE BATTERY. NO FURTHER REQUESTS AT THIS TIME.
--- NOTE | 2019-09-25 06:26 | NUR ---
PT REPORTS SHE SLEPT REALLY WELL THROUGH THE NIGHT. TELE UNIT STILL IN PLACE. TACHYCARDIA SOMEWHAT RESOLVED WITH RANDOM SPIKES OF HR TO 105-110. MOST OF THIS SHIFT, PT HR HAS REMAINED IN THE 80S. PT IS INDEPENDENT IN THE ROOM AND USES TOILET TO VOID. PT REPORTS NO PAIN BUT COUGH IS STILL PRESENT. COUGH SEEMS MORE LOOSE TODAY.
--- NOTE | 2019-09-25 09:08 | EKG ---
[facility] [address] [place] [address] Signed Poor data quality, interpretation may be adversely affected Sinus tachycardia Otherwise normal ECG When compared with ECG of 08-FEB-2018 16:44, VT interval has decreased Vent. rate has increased BY 54 BPM T wave amplitude has increased in Lateral leads Confirmed by TONYA ROUSE MD ([id number]) on 09/25/2019 9:08:34 AM Electronically Signed By: TONYA ROUSE MD 09/25/19 0908 PATIENT NAME: TONEY HAY ROGER Electrocardiogram DATE OF : 62 PHYSICIAN: TONYA ROUSE MD REPORT #: [id number] REPORT IS CONFIDENTIAL AND NOT TO BE RELEASED WITHOUT AUTHORIZATION
[2019-09-25] MEDS ORDERED: AZITHROMYCIN500 MG PO (12:05)
[2019-09-25] MEDS ORDERED: ATROVENT HFA12.9 GM INH (12:07)
[2019-09-25] MEDS ORDERED: METOPROLOL SUCC50 MG PO (12:08)
[2019-09-25] MEDS ORDERED: PREDNISONE20 MG PO (12:09)
[2019-09-25] MEDS ORDERED: BENZONATATE100 MG PO (12:10)
== END 2019-09-25 13:16 | disposition home or self-care (01) ==
LOC: ED 16:14 → CCU 16:15 → MS 09-24 04:00
PROVIDERS: ADMIT Internal Medicine
DX: R05 Cough (principal); R65.10 Systemic inflammatory response syndrome (SIRS) of non-infectious origin without acute organ dysfunction; I10 Essential (primary) hypertension; E78.5 Hyperlipidemia, unspecified; G89.4 Chronic pain syndrome; F17.200 Nicotine dependence, unspecified, uncomplicated; Z91.030 Bee allergy status; Z88.0 Allergy status to penicillin; Z79.899 Other long term (current) drug therapy
CPT/HCPCS: 71045; 80053; 83605; 83880; 84439; 84443; 85025; 85379; 93005; 93010; 94640; 96361; 96372; 96374; 96375; 96376; 99285-25; C9803; G0378; J1650; J2920; J2930; J7121; J7512; U0002

== ENCOUNTER 2019-09-28 08:35 | Emergency (ER) | payer OTHER ==
[~2019-09-28] VITALS: Ht 172.7 cm; Wt 101.6 kg
--- OUTSIDE RECORDS SUMMARY | ~2019-09-28 | XMS | Encounter Summary ---
Demographics + + + | Address | [address] | | | [place] [address] | + + + | Home Phone | | + + + | Preferred Language | Unknown | + + + | Marital Status | Single | + + + | Latter-Day Affiliation | Unknown | + + + | Race | White | + + + | Ethnic Group | Not or | + + + Author + + + | Author | [facility] | + + + | Organization | [facility] | + + + | Address | Unknown | + + + | Phone | Unavailable | + + + Support + + +---------+ + | Name | Relationship | Address | Phone | + + +---------+ + | Theodore Rodriguez | ECON | Unknown | | + + +---------+ + Care Team Providers + +------+ + | Care Care Transition Coordinator Name | Role | Phone | + +------+ + | Dinora Galana SONG | PCP | | + +------+ + Reason for Visit + + + | Reason | Comments | + + + | Examination Of Skin | Pt here today for preventative skin check. She has no hx of skin | | | cancer or melanoma. She is hoping to have a spot on her face | | | treated with Cryo | + + + Consultation (Routine) +--------+ + + + + + | Status | Reason | Specialty | Diagnoses / | Referred By | Referred To | | | | | Procedures | Contact | Contact | +--------+ + + + + + | Closed | Specialty | Dermatology | Diagnoses | [facility], | [place], | | | Services | | Neoplasm of | SONG Martin | Johanna Goyal MD | | | Required | | uncertain | Rom[place] | [address] | | | | | behavior of | Family | Ave | | | | | skin | medicine | [place], [place] | | | | | | [address] | [address] | | | | | | [address] | | | | | | | [address] | | | | | | | [place], | | | | | | | [place] [address] | | | | | | | Phone: | | | | | | | [phone] | | | | | | | Fax: | | | | | | | [phone] | | +--------+ + + + + + Encounter Details +--------+---------+ + + + | Date | Type | Department | Care Team | Description | +--------+---------+ + + + | 07/17/ | Office | Dermatology at | [facility] | Multiple nevi | | 2017 | Visit | [facility] | MD [facility] | (Primary Dx); | | | | Clinic [address] | | Sebaceous | | | | [address] [place] | | hyperplasia; Other | | | | [address] | | seborrheic keratosis | | | | [phone] | | | +--------+---------+ + + + Social History + +-------+ [...] + + documented as of this encounter Last Filed Vital Signs + + + [...] | | + + + + + documented in this encounter Progress Notes Johanna Elena MD - 07/17/2016 11:00 AM PDT DERMATOLOGY NEW PATIENT VISIT CHIEF COMPLAINT: Examination Of Skin PCP: SONG Duvall HISTORY OF PRESENT ILLNESS: Anitha Ragland is a 56 y.o. female who presents for evaluation of Examination Of Skin. Roslyn ent presents today for preventive skin check. She has no personal or family history of skin cancer or melanoma. She has had many sunburns and has used a tanning bed in the past. Sh e complains today of some bumps on her forehead and cheeks. They have been present for quit e a while and some of them have enlarged. They are asymptomatic but are quite bothersome to her cosmetically. She wonders if there are any treatment options. It she would also like to have some bumps on her back and groin check. She states that her grandchild recently not iced 1 on her back and asked her about it. It is asymptomatic and she is unsure how long it has been there. She has no other concerning lesions today and denies any other skin compla ints. She grew up in [place] and [facility]. They have history of tanning bed use, history of many serious sunburns. Outdoor hobbies and interests include: biking, walking, grandkids. 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 She does occasionally use sunscreens and protective clothing, and does examine her skin regularly. The patient's dermatology intake form was reviewed, signed, and dated. Her relevant PMH, F H, and includes: PAST MEDICAL HISTORY: No past medical history on file. PAST SURGICAL HISTORY: No past surgical history on file. FAMILY HISTORY: Family History: No h/o skin cancer SOCIAL HISTORY: Patient reports that she has been smoking. She does not have any smokeless tobacco histor y on file. MEDICATIONS: Current Medication List Name Sig TRETINOIN 0.025 % TOPICAL CREAM Apply topically at bedtime. Wash face with mild soap. Pat d ry. Wait 20-30 min to apply. Avoid eyes, nostrils, & mouth. ALLERGIES: Allergies Allergen Reactions Penicillin Rash REVIEW OF SYSTEMS: Please see HPI and PMH. In addition, she denies fever, chills, sweats, weight loss or loss of appetite, and has no further skin complaints. PHYSICAL EXAMINATION: Ht 1.715 m (5' 7.5") | Wt 94.3 kg (208 lb) | BMI 32.1 kg/(m^2) Well-developed, well-nourished female in no acute distress. Awake, alert and oriented. Pl easant and cooperative mood. A skin examination was performed including the scalp, face, eyelids, ears, lips, teeth, ton mikala, oral mucosa, neck, chest, back, abdomen, buttocks, bilateral arms and legs, bilateral h ands and feet, and nails. Findings were within normal limits except for the following: --diffusely oily on face --central forehead, cheek and chin with umbilicated yellow-white papules --trunk and extremities: few generally symmetric light/medium brown pigmented macules and p apules. --back, left groin: waxy hyperkeratotic bell/brown stuck on papules and plaques with pseudoc ysts ASSESSMENT AND PLAN: Multiple nevi (primary encounter diagnosis) Comment: few on trunk and extremities Plan: -ABCDEs of melanoma were discussed as well as the findings seen with non-melanoma sk in cancer. Routine use of sunscreen and skin-protective clothing was also discussed. Month ly self-examination was recommended in addition to annual skin exams Sebaceous hyperplasia Comment: central face Plan: Treated on low setting of electrocautery today x 10 lesions. Reviewed risk of incom plete treatment, recurrence and scarring with patient. She tolerated the procedure well repo rts no pain after the procedure. Start tretinoin 0.025% cream every 3 nights increasing to q hs as tolerated. Reviewed RBA and proper use of retinoids with pt. Provided goodrx card. Seborrheic keratoses Comment: Back, groin Plan: -Pt reassured as to the benign nature, does not require treatment unless symptomatic or repeatedly traumatized. Like any lesion, should it not be stable in size or appearance, o r become symptomatic, it should be biopsied to confirm benign nature. Pt instructed to retur n with any change or concern. RETURN VISIT: Return if symptoms worsen or fail to improve. Johanna Elena MD Wood Heel Finisher Department of Dermatology [facility] [place] Electronically signed by Johanna Elena MD at 2016 1:33 PM PDTdocumented in this encounter Plan of Treatment Not on filedocumented as of this encounter Procedures + +--------+ + + + | Procedure Name | Priori | Date/Time | Associated Diagnosis | Comments | | | ty | | | | + +--------+ + + + | ND DESTRUC BENIGN | Routin | 07/17/2016 | Sebaceous | | | LESION, UP TO 14 | e | 1:30 PM | hyperplasia | | | LESIONS | | PDT | | | + +--------+ + + + documented in this encounter Visit Diagnoses + + | Diagnosis | + + | Multiple nevi - Primary Benign neoplasm of skin, site unspecified | + + | Sebaceous hyperplasia Other specified disease of sebaceous glands | + + | Other seborrheic keratosis | + + documented in this encounter
--- OUTSIDE RECORDS SUMMARY | ~2019-09-28 | XMS | Encounter Summary ---
Demographics + + + | Address | [address] | | | [place] [address] | + + + | Home Phone [...] Author + + + | Author | [facility] | + + + | Organization | [facility] | + + + | Address | Unknown | + + + | Phone | Unavailable | + + + Support + + +---------+ + | Name | Relationship | Address | Phone | + + +---------+ + | Theodore oRdriguez | ECON | Unknown | | + + +---------+ + Care Team Providers + +------+ + | Care Air Reduction Equipment Operator Name | Role | Phone | [...] | | | skin | medicine | [place], [place] | | | | | | [address] | [address] | | | | | | [address] | | | | | | | [address] | | | | | | | [place], | | | | | | | [place] [address] | | | | | | | Phone: | | | | | | | [phone] | | | | | | | Fax: | | | | | | | [phone] | | +--------+ + + + + + Encounter Details +--------+---------+ + + + | Date | Type | Department | Care Team | Description | +--------+---------+ + + + | 07/17/ | Office | Dermatology at | [facility] | Multiple nevi | | 2017 | Visit | [facility] | MD [facility] | (Primary Dx); | | | | Clinic [address] | | Sebaceous | | | | [address] [place] | | hyperplasia; Other | | | | [address] | | seborrheic keratosis | | | | [phone] | | | +--------+---------+ + + + [...] skin compla ints. She grew up in [place] and [facility]. They have history of tanning bed [...] or fail to improve. Johanna Elena MD Rn Lpn Cna Department of Dermatology [facility] [place] Electronically signed by Johanna Elena MD at 2016 1:33 PM PDTdocumented in this encounter Plan of Treatment Not on filedocumented as of this encounter Procedures + +--------+ + + + | Procedure Name | Priori | Date/Time | Associated Diagnosis | Comments | | | ty | | | | + +--------+ + + + | MA DESTRUC BENIGN | Routin | 07/17/2016 | [...]
--- OUTSIDE RECORDS SUMMARY | ~2019-09-28 | XMS | Clinical Summary ---
Demographics + + + | Address | [address] | | | [place] [address] | + + + | Home Phone [...] + + + | Author | [facility] | + + + | Organization | [facility] | + + + | Address | Unknown | + + + | Phone | Unavailable | + + + Support + + +---------+ + | Name | Relationship | Address | Phone | + + +---------+ + | Theodore Rodriguez | ECON | Unknown | | + + +---------+ + Care Team Providers + +------+ + | Care Traffic Or System Dispatcher Name | Role | Phone | + +------+ + | Veronica Galan | PCP | | + +------+ + Source Comments JAMIE is fully live on both [facility] Ambulatory and [facility] InPatient.[facility] Allergies + + + + + [...] | | | + +--------+ +--------+-------+---------+--------+ | RESOLUTION REP MEDICAID | RESOLUTION REP | xxxxxxxx | Effect | | | [...] | | al/Fam | | 1961 | [phone] | [address] [place] | | | hilario | | | 2 (Home) | [id number] | | | | | | [phone] | | | | | | | 0 (Work) | | + +--------+ +--------+ + +
--- OUTSIDE RECORDS SUMMARY | ~2019-09-28 | XMS | Encounter Summary ---
Demographics + + + | Address | [address] | | | [place] [address] | + + + | Home Phone | | + + + | Preferred Language | Unknown | + + + | Marital Status | Single | + + + | Caodaism Affiliation | Unknown | + + + | Race | White | + + + | Ethnic Group | Not or | + + + Author + + + | Author | [facility] | + + + | Organization | [facility] | + + + | Address | Unknown | + + + | Phone | Unavailable | + + + Support + + +---------+ + | Name | Relationship | Address | Phone | + + +---------+ + | Theodore Rodriguez | ECON | Unknown | | + + +---------+ + Care Team Providers + +------+ + | Care Search Marketing Specialist Name | Role | Phone | + +------+ + | Veronica Galan | PCP | | + +------+ + Encounter Details +--------+ + + + + | Date | Type | Department | Care Team | Description | +--------+ + + + + | 06/10/ | Document-Sc | Dermatology at | [facility] | | | 2017 | anned | [facility] | [facility] | | | | | [facility] [address] | | | | | [address] [place] | | | | | | [address] | | | | | | [phone] | | | +--------+ + + + [...]
--- OUTSIDE RECORDS SUMMARY | ~2019-09-28 | XMS | Clinical Summary ---
Demographics + + + | Address | [address] | | | [place] [address] | + + + | Home Phone | | + + + | Preferred Language | Unknown | + + + | Marital Status | Single | + + + | Faith Affiliation | Unknown | + + + | Race | White | + + + | Ethnic Group | Not or | + + + Author + + + | Author | [facility] | + + + | Organization | [facility] | + + + | Address | Unknown | + + + | Phone | Unavailable | + + + Support + + +---------+ + | Name | Relationship | Address | Phone | + + +---------+ + | Theodore Rodriguez | ECON | Unknown | | + + +---------+ + Care Team Providers + +------+ + | Care Dewaxer Name | Role | Phone | + +------+ + | Veronica Galan | PCP | | + +------+ + Source Comments JAMIE is fully live on both [facility] Ambulatory and [facility] InPatient.[facility] Allergies + + + + + [...] | | | + +--------+ +--------+-------+---------+--------+ | ENGINE EMISSION TECHNICIAN MEDICAID | ENGINE EMISSION TECHNICIAN | xxxxxxxx | Effect | | | [...] | | al/Fam | | 1961 | [phone] | [address] [place] | | | hilario | | | 2 (Home) | [id number] | | | | | | [phone] | | | | | | | 0 (Work) | | + +--------+ +--------+ + +
--- OUTSIDE RECORDS SUMMARY | ~2019-09-28 | XMS | Encounter Summary ---
Demographics + + + | Address | [address] | | | [place] [address] | + + + | Home Phone | | + + + | Preferred Language | Unknown | + + + | Marital Status | Single | + + + | Sabianism Affiliation | Unknown | + + + | Race | White | + + + | Ethnic Group | Not or | + + + Author + + + | Author | [facility] | + + + | Organization | [facility] | + + + | Address | Unknown | + + + | Phone | Unavailable | + + + Support + + +---------+ + | Name | Relationship | Address | Phone | + + +---------+ + | Theodore Rodriguez | ECON | Unknown | | + + +---------+ + Care Team Providers + +------+ + | Care Trimmer Sorter Name | Role | Phone | + +------+ + | Veronica Galan | PCP | | + +------+ + Encounter Details +--------+ + + + + | Date | Type | Department | Care Team | Description | +--------+ + + + + | 06/10/ | Document-Sc | Dermatology at | [facility] | | | 2017 | anned | [facility] | [facility] | | | | | Clinic [address] | | | | | [address] [place] | | | | | | [address] | | | | | | [phone] | | | +--------+ + + + [...]
[~2019-09-28 08:35] MED LIST changes: +ATROVENT HFA12.9 GM INH; +AZITHROMYCIN500 MG PO; +BENZONATATE100 MG PO; +METOPROLOL SUCC50 MG PO; +PREDNISONE20 MG PO
--- OUTSIDE RECORDS SUMMARY | 2019-09-28 08:38 | XMS ---
PreManage Notification: TONEY HAY Security Precise Winder Events No recent Security Events currently on file CRITERIA MET - [facility] - 2 Visits in 30 Days CARE PROVIDERS CHRISTOFER NEGRON Physician Seed Yeast Operator 07/17/2016-Current PHONE: Unknown Gautam has no Care Guidelines for this patient. EPaul VISIT COUNT (12 MO.) 3 [facility] TOTAL 3 NOTE: Visits indicate total known visits. ED/UCC VISIT TRACKING (12 MO.) 09/28/2019 08:35 [facility] [place] TYPE: Emergency COMPLAINT: - COUGH, SOB 09/23/2019 16:14 [facility] [place] TYPE: Emergency COMPLAINT: - SOB 09/23/2019 02:24 [facility] [place] TYPE: Emergency COMPLAINT: - COUGH DIAGNOSES: - Nicotine dependence, unspecified, uncomplicated - Other rn long term care (current) drug therapy - Allergy status to penicillin - Cough - Essential (primary) hypertension - Bee allergy status INPATIENT VISIT TRACKING (12 MO.) 09/23/2019 16:15 [facility] [place] TYPE: Observation COMPLAINT: - ACUTE BRONCHITIS/SIRS DIAGNOSES: - Hyperlipidemia, unspecified - Allergy status to penicillin - Essential (primary) hypertension - Chronic pain syndrome - Cough - Systemic inflammatory response syndrome (SIRS) of non-infecti - Bee allergy status - Nicotine dependence, unspecified, uncomplicated - Other rn long term care (current) drug therapy [email or web address]
[2019-09-28] MEDS ORDERED: NICOTINE PATCH1 EAC1 TD (09:14)
[2019-09-28] MEDS ORDERED: ALBUTEROL2.5 MG/3 M INH (09:14)
== END 2019-09-28 09:30 | disposition home or self-care (01) ==
LOC: ED 08:35
DX: J44.1 Chronic obstructive pulmonary disease with (acute) exacerbation (principal); I10 Essential (primary) hypertension; E78.00 Pure hypercholesterolemia, unspecified; Z87.891 Personal history of nicotine dependence; Z88.0 Allergy status to penicillin; Z91.030 Bee allergy status; Z79.899 Other long term (current) drug therapy
CPT/HCPCS: 99284

== ENCOUNTER 2020-02-19 20:47 | Emergency (ER) | payer OTHER ==
[~2020-02-19] VITALS: Ht 170.2 cm; Wt 99.2 kg
[~2020-02-19 20:47] MED LIST changes: +ALBUTEROL2.5 MG/3 M INH
--- OUTSIDE RECORDS SUMMARY | 2020-02-19 20:50 | XMS ---
PreManage Notification: TONEY HAY Security Cessation Systems Outreach Specialist Events No recent Security Events currently on file CRITERIA MET - PDMP CARE PROVIDERS CHRISTOFER NEGRON Physician Senior Principal Process Engineer 07/17/2016-Current PHONE: Unknown Gautam has no Care Guidelines for this patient. Lakshmi VISIT COUNT (12 MO.) 4 [facility] Lama TOTAL 4 NOTE: Visits indicate total known visits. ED/UCC VISIT TRACKING (12 MO.) 02/19/2020 20:48 [facility] [place] TYPE: Emergency COMPLAINT: - RT EAR PAIN 09/28/2019 08:35 [facility] [place] TYPE: Emergency COMPLAINT: - COUGH, SOB DIAGNOSES: - Essential (primary) hypertension - Pure hypercholesterolemia, unspecified - Bee allergy status - Chronic obstructive pulmonary disease with (acute) exacerbation - Personal history of nicotine dependence - Other long term care phlebotomist (current) drug therapy - Allergy status to penicillin - Cough 09/23/2019 16:14 [facility] [place] TYPE: Emergency COMPLAINT: - SOB 09/23/2019 02:24 [facility] [place] TYPE: Emergency COMPLAINT: - COUGH DIAGNOSES: - Nicotine dependence, unspecified, uncomplicated - Other long-term (current) drug therapy - Allergy status to penicillin - Cough - Essential (primary) hypertension - Contact with and (suspected) exposure to other viral communicable diseases - Bee allergy status INPATIENT VISIT TRACKING (12 MO.) 09/23/2019 16:15 [facility] [place] TYPE: Observation COMPLAINT: - ACUTE BRONCHITIS/SIRS DIAGNOSES: - Hyperlipidemia, unspecified - Allergy status to penicillin - Essential (primary) hypertension - Chronic pain syndrome - Cough - Encounter for screening for other viral diseases - Systemic inflammatory response syndrome (SIRS) of non-infectious origin without acute organ dysfunction - Bee allergy status - Nicotine dependence, unspecified, uncomplicated - Other long-term (current) drug therapy [email or web address]
[2020-02-19] MEDS ORDERED: CATAPRES0.2 MG PO (21:04)
[2020-02-19] MEDS ORDERED: OMEPRAZOLE20 MG PO (21:05)
[2020-02-19] MEDS ORDERED: KEFLEX500 MG PO (21:28)
== END 2020-02-19 22:17 | disposition home or self-care (01) ==
LOC: ED 20:47
DX: L03.211 Cellulitis of face (principal); H92.01 Otalgia, right ear; I10 Essential (primary) hypertension; E78.00 Pure hypercholesterolemia, unspecified; F17.200 Nicotine dependence, unspecified, uncomplicated; Z88.0 Allergy status to penicillin
CPT/HCPCS: 96372; 99283; J0696

== ENCOUNTER 2020-04-24 14:47 | Emergency (ER) | payer OTHER ==
[~2020-04-24] VITALS: Ht 170.2 cm; Wt 96.2 kg
[~2020-04-24 14:47] MED LIST changes: +CATAPRES0.2 MG PO; +KEFLEX500 MG PO; +OMEPRAZOLE20 MG PO
--- OUTSIDE RECORDS SUMMARY | 2020-04-24 14:50 | XMS ---
PreManage Notification: TONEY HAY Security Licensed Practical Nurse Instructor Events No recent Security Events currently on file CRITERIA MET - PDMP CARE PROVIDERS CHRISTOFER NEGRON Physician Clinical Informatics Specialist 07/17/2016-Current PHONE: Unknown Gautam has no Care Guidelines for this patient. EPaul VISIT COUNT (12 MO.) 5 RAH[facility] Lama TOTAL 5 NOTE: Visits indicate total known visits. ED/UCC VISIT TRACKING (12 MO.) 04/24/2020 14:48 [facility] [place] TYPE: Emergency COMPLAINT: - COUGH, FEVER, CONGESTION 02/19/2020 20:48 [facility] [place] TYPE: Emergency COMPLAINT: - RT EAR PAIN DIAGNOSES: - Cellulitis of face - Essential (primary) hypertension - Otalgia, right ear - Nicotine dependence, unspecified, uncomplicated - Pure hypercholesterolemia, unspecified - Allergy status to penicillin 09/28/2019 08:35 [facility] [place] TYPE: Emergency COMPLAINT: - COUGH, SOB DIAGNOSES: - Essential (primary) hypertension - Pure hypercholesterolemia, unspecified - Bee allergy status - Chronic obstructive pulmonary disease with (acute) exacerbation - Personal history of nicotine dependence - Other regional intermodal truck driver (current) drug therapy - Allergy status to penicillin - Cough 09/23/2019 16:14 [facility] [place] TYPE: Emergency COMPLAINT: - SOB 09/23/2019 02:[address] [facility] [facility] [place] TYPE: Emergency COMPLAINT: - COUGH DIAGNOSES: - Nicotine dependence, unspecified, uncomplicated - Other jail (current) drug therapy - Allergy status to penicillin - Cough - Essential (primary) hypertension - Contact with and (suspected) exposure to other viral communicable diseases - Bee allergy status INPATIENT VISIT TRACKING (12 MO.) 09/23/2019 16:15 [facility] [place] [facility] [place]: Observation COMPLAINT: - ACUTE BRONCHITIS/SIRS DIAGNOSES: - Hyperlipidemia, unspecified - Allergy status to penicillin - Essential (primary) hypertension - Chronic pain syndrome - Cough - Encounter for screening for other viral diseases - Systemic inflammatory response syndrome (SIRS) of non-infectious origin without acute organ dysfunction - Bee allergy status - Nicotine dependence, unspecified, uncomplicated - Other regional intermodal truck driver (current) drug therapy [email or web address]
[2020-04-24] MEDS ORDERED: PSEUDOEPHEDRINE30 MG PO (19:19)
[2020-04-24] MEDS ORDERED: ZITHROMAX250 MG PO (19:19)
[2020-04-24] MEDS ORDERED: TESSALON PERLE100 MG PO (19:19)
[2020-04-24] MEDS ORDERED: PREDNISONE20 MG PO (19:19)
== END 2020-04-24 19:57 | disposition home or self-care (01) ==
LOC: ED 14:47
DX: J20.9 Acute bronchitis, unspecified (principal); I10 Essential (primary) hypertension; E78.00 Pure hypercholesterolemia, unspecified; F17.200 Nicotine dependence, unspecified, uncomplicated; Z88.0 Allergy status to penicillin; Z91.030 Bee allergy status; Z79.899 Other long term (current) drug therapy; Z20.822 Contact with and (suspected) exposure to COVID-19
CPT/HCPCS: 71045; 80053; 85025; 94640; 96374; 99283-25; 99406; C9803; J2930; U0003

== ENCOUNTER 2021-04-19 19:43 | Emergency (ER) | payer OTHER ==
[~2021-04-19 19:43] MED LIST changes: +PSEUDOEPHEDRINE30 MG PO; +TESSALON PERLE100 MG PO; +ZITHROMAX250 MG PO
--- OUTSIDE RECORDS SUMMARY | 2021-04-19 19:46 | XMS ---
PreManage Notification: TONEY HAY Security Larry Operator Events No recent Security Events currently on file CRITERIA MET - ED - Positive COVID-19 Lab Result - [facility] - PDMP CARE PROVIDERS CHRISTOFER NEGRON Physician Bookmobile Driver 07/17/2016-Current PHONE: Unknown Gautam has no Care Guidelines for this patient. E.D. VISIT COUNT (12 MO.) 2 [facility]HAT Lama TOTAL 2 NOTE: Visits indicate total known visits. ED/UCC VISIT TRACKING (12 MO.) 04/19/2021 19:[address] [facility] [place] TYPE: Emergency COMPLAINT: - FALL,LACERATION 04/24/2020 14:[address] [facility] [place] TYPE: Emergency COMPLAINT: - COUGH, FEVER, CONGESTION DIAGNOSES: - Other director long term care (current) drug therapy - Essential (primary) hypertension - Nicotine dependence, unspecified, uncomplicated - Allergy status to penicillin - Cough - Bee allergy status - Acute bronchitis, unspecified - Pure hypercholesterolemia, unspecified INPATIENT VISIT TRACKING (12 MO.) No inpatient visits to display in this time frame [id number]
[2021-04-19] MEDS ORDERED: ULTRAM50 MG PO (22:05)
[2021-04-19] MEDS ORDERED: BACTRIM DS TAB1 EACH PO (22:05)
== END 2021-04-19 22:55 | disposition home or self-care (01) ==
LOC: ED 19:43
DX: S01.81XA Laceration without foreign body of other part of head, initial encounter (principal); I10 Essential (primary) hypertension; E78.00 Pure hypercholesterolemia, unspecified; F17.200 Nicotine dependence, unspecified, uncomplicated; Z88.0 Allergy status to penicillin; Z91.030 Bee allergy status; Z79.899 Other long term (current) drug therapy; W19.XXXA Unspecified fall, initial encounter; W22.8XXA Striking against or struck by other objects, initial encounter
CPT/HCPCS: 12054; 36415; 70450; 70486; 72125; 80048; 81001; 85025; 85610; 90471; 90714; 99283-25; G0480; J2060; J2270

== ENCOUNTER 2021-06-18 22:56 | Emergency (ER) | payer OTHER ==
[~2021-06-18] VITALS: Ht 170.2 cm; Wt 97.4 kg
[~2021-06-18 22:56] MED LIST changes: +BACTRIM DS TAB1 EACH PO; +ULTRAM50 MG PO
[2021-06-18] MEDS ORDERED: NAPROXEN500 MG PO (23:16)
[2021-06-19] MEDS ORDERED: CIPRO500 MG PO (01:05)
[2021-06-19] MEDS ORDERED: HYDROCODON-ACE1 EA10 PO (01:05)
[2021-06-19] MEDS ORDERED: METRONIDAZOLE500 MG PO (01:05)
[2021-06-19] MEDS ORDERED: ONDANSETRON ODT8 MG PO (01:05)
== END 2021-06-19 01:43 | disposition home or self-care (01) ==
LOC: ED 22:56
DX: K57.32 Diverticulitis of large intestine without perforation or abscess without bleeding (principal); I10 Essential (primary) hypertension; E78.00 Pure hypercholesterolemia, unspecified; F17.200 Nicotine dependence, unspecified, uncomplicated; Z88.0 Allergy status to penicillin; Z91.030 Bee allergy status; Z79.899 Other long term (current) drug therapy
CPT/HCPCS: 36415; 74177; 80053; 81001; 83690; 85025; 96375; 99284-25; A9270; J2270; J2405

== ENCOUNTER 2021-07-20 10:17 | Emergency (ER) | payer OTHER ==
[~2021-07-20] VITALS: Ht 170.2 cm; Wt 90.7 kg
[~2021-07-20 10:17] MED LIST changes: +CIPRO500 MG PO; +HYDROCODON-ACE1 EA10 PO; +METRONIDAZOLE500 MG PO; +NAPROXEN500 MG PO; +ONDANSETRON ODT8 MG PO
--- OUTSIDE RECORDS SUMMARY | 2021-07-20 10:20 | XMS ---
PreManage Notification: TONEY HAY Security Warp Knit Operator Events No recent Security Events currently on file CRITERIA MET - PDMP CARE PROVIDERS CHRISTOFER NEGRON Physician Elevator Constructor Hydraulic 04/21/2021-Current PHONE: Unknown Gautam has no Care Guidelines for this patient. Lakshmi VISIT COUNT (12 MO.) 3 RAHAT Lama TOTAL 3 NOTE: Visits indicate total known visits. ED/UCC VISIT TRACKING (12 MO.) 07/20/2021 10:18 [facility] [place] TYPE: Emergency COMPLAINT: - FEVER, CHEST BURNING, COUGH, CONGESTION 06/18/2021 22:57 [facility] [place] TYPE: Emergency COMPLAINT: - LOWER ABD PAIN DIAGNOSES: - Nicotine dependence, unspecified, uncomplicated - Pure hypercholesterolemia, unspecified - Bee allergy status - Lower abdominal pain, unspecified - Allergy status to penicillin - Other rag cutting machine operator (current) drug therapy - Diverticulitis of large intestine without perforation or abscess without bleeding - Essential (primary) hypertension 04/19/2021 19:43 [facility] [place] TYPE: Emergency COMPLAINT: - FALL,LACERATION DIAGNOSES: - Pure hypercholesterolemia, unspecified - Other senior care (current) drug therapy - Unspecified fall, initial encounter - Unspecified injury of face, initial encounter - Laceration without foreign body of other part of head, initial encounter - Striking against or struck by other objects, initial encounter - Bee allergy status - Allergy status to penicillin - Essential (primary) hypertension - Nicotine dependence, unspecified, uncomplicated INPATIENT VISIT TRACKING (12 MO.) No inpatient visits to display in this time frame [email or web address]
[2021-07-20] MEDS ORDERED: PREDNISONE20 MG PO (11:32)
[2021-07-20] MEDS ORDERED: VENTOLIN HFA18 GM INH (11:32)
[2021-07-20] MEDS ORDERED: IPRAT-ALBUT 0.5-3 ML INH (12:15)
== END 2021-07-20 12:28 | disposition home or self-care (01) ==
LOC: ED 10:17
DX: J20.9 Acute bronchitis, unspecified (principal); Z20.822 Contact with and (suspected) exposure to COVID-19; I10 Essential (primary) hypertension; E78.00 Pure hypercholesterolemia, unspecified; F17.200 Nicotine dependence, unspecified, uncomplicated; Z91.030 Bee allergy status; Z88.0 Allergy status to penicillin; Z79.899 Other long term (current) drug therapy
CPT/HCPCS: 71046; 87502; 94640; 99285-25; 99406; A9270; C9803; J7512; U0003

== ENCOUNTER 2021-07-25 20:45 | Emergency (ER) | payer OTHER ==
[~2021-07-25] VITALS: Ht 170.2 cm; Wt 91.0 kg
[~2021-07-25 20:45] MED LIST changes: +IPRAT-ALBUT 0.5-3 ML INH
--- OUTSIDE RECORDS SUMMARY | 2021-07-25 20:48 | XMS ---
PreManage Notification: TONEY HAY Security Registered Dietician Events No recent Security Events currently on file [facility] CARE PROVIDERS CHRISTOFER NEGRON Physician Supervisor Throwing Department 04/21/2021-Current PHONE: Unknown Gautam has no Care Guidelines for this patient. Lakshmi VISIT COUNT (12 MO.) 4 [facility] TOTAL 4 NOTE: Visits indicate total known visits. ED/UCC VISIT TRACKING (12 MO.) 07/25/2021 20:45 [facility] [place] TYPE: Emergency COMPLAINT: - FLANK PAIN 07/20/2021 10:18 [facility] [place] TYPE: Emergency COMPLAINT: - FEVER, CHEST BURNING, COUGH, CONGESTION DIAGNOSES: - Nicotine dependence, unspecified, uncomplicated - Contact with and (suspected) exposure to COVID-19 - Bee allergy status - Pure hypercholesterolemia, unspecified - Essential (primary) hypertension - Cough, unspecified - Acute bronchitis, unspecified - Other [facility] (current[facility] drug therapy - Allergy status to penicillin 06/18/2021 22:57 [facility] [place] TYPE: Emergency COMPLAINT: - LOWER ABD PAIN DIAGNOSES: - Nicotine dependence, unspecified, uncomplicated - Pure hypercholesterolemia, unspecified - Bee allergy status - Lower abdominal pain, unspecified - Allergy status to penicillin - Other [place] [facility] (current) drug therapy - Diverticulitis of large intestine without perforation or abscess without bleeding - Essential (primary) hypertension 04/19/2021 19:[address] [facility] [place] TYPE: Emergency COMPLAINT: - FALL,LACERATION DIAGNOSES: - Pure hypercholesterolemia, unspecified - Other exterminator helper (current) drug therapy - Unspecified fall, initial [...] visits to display in this time frame [email or web address]
[2021-07-26] MEDS ORDERED: HYDROCODON-ACE1 EA10 PO (00:58)
[2021-07-26] MEDS ORDERED: BACTRIM DS TAB1 EACH PO (00:58)
[2021-07-26] MEDS ORDERED: METRONIDAZOLE500 MG PO (00:58)
== END 2021-07-26 01:53 | disposition home or self-care (01) ==
LOC: ED 20:45
DX: K57.32 Diverticulitis of large intestine without perforation or abscess without bleeding (principal); I10 Essential (primary) hypertension; E78.00 Pure hypercholesterolemia, unspecified; F17.200 Nicotine dependence, unspecified, uncomplicated; Z88.0 Allergy status to penicillin; Z91.030 Bee allergy status; Z79.899 Other long term (current) drug therapy; Z79.52 Long term (current) use of systemic steroids
CPT/HCPCS: 36415; 74177; 80053; 81001; 83690; 85025; 96361; 96375; 96376; 99284-25; A9270; J1170; J2405; J7030; Q9967

== ENCOUNTER 2021-09-29 19:19 | Emergency (ER) | payer OTHER ==
[~2021-09-29] VITALS: Ht 170.2 cm; Wt 96.3 kg
--- OUTSIDE RECORDS SUMMARY | 2021-09-29 19:20 | XMS ---
PreManage Notification: TONEY HAY Security Family Living Educator Events No recent Security Events currently on file CRITERIA MET - PDMP CARE PROVIDERS CHRISTOFER NEGRON Physician Lead Person 04/21/2021-Current PHONE: Unknown Gautam has no Care Guidelines for this patient. EPaul VISIT COUNT (12 MO.) 5 RAHAT Lama TOTAL 5 NOTE: Visits indicate total known visits. ED/UCC VISIT TRACKING (12 MO.) 09/29/2021 19:[address] [facility] [address] [facility] [place] TYPE: Emergency COMPLAINT: - ABDOMINAL PAIN 07/25/2021 20:45 [facility] [place] TYPE: Emergency COMPLAINT: - FLANK PAIN DIAGNOSES: - Essential (primary) hypertension - [facility] (current) use of systemic steroids - Bee allergy status - Nicotine dependence, unspecified, uncomplicated - Other shelter (current) drug therapy - Allergy status to penicillin - Pure hypercholesterolemia, unspecified - Right lower quadrant pain - Diverticulitis of large intestine without perforation or abscess without bleeding 07/20/2021 10:[address] [facility] [place] TYPE: Emergency COMPLAINT: - FEVER, CHEST BURNING, COUGH, CONGESTION DIAGNOSES: - Nicotine dependence, unspecified, uncomplicated - Contact with and (suspected) exposure to COVID-19 - Bee allergy status - Pure hypercholesterolemia, unspecified - Essential (primary) hypertension - Cough, unspecified - Acute bronchitis, unspecified - Other shelter (current) drug therapy - Allergy status to penicillin 06/18/2021 22:57 [facility] [place] TYPE: Emergency COMPLAINT: - LOWER ABD PAIN DIAGNOSES: - Nicotine dependence, unspecified, uncomplicated - Pure hypercholesterolemia, unspecified - Bee allergy status - Lower abdominal pain, unspecified - Allergy status to penicillin - Other medical assembly (current) drug therapy - Diverticulitis of large intestine without perforation or abscess without bleeding - Essential (primary) hypertension 04/19/2021 19:43 [facility] [place] TYPE: Emergency COMPLAINT: - FALL,LACERATION DIAGNOSES: - Pure hypercholesterolemia, unspecified - Other shelter (current) drug therapy - Unspecified fall, initial [...] visits to display in this time frame [id number]
[2021-09-29] MEDS ORDERED: HYDROCODON-ACE1 EA10 PO (22:31)
[2021-09-29] MEDS ORDERED: METRONIDAZOLE500 MG PO (22:31)
[2021-09-29] MEDS ORDERED: CIPRO500 MG PO (22:31)
== END 2021-09-29 23:05 | disposition home or self-care (01) ==
LOC: ED 19:19
DX: K57.32 Diverticulitis of large intestine without perforation or abscess without bleeding (principal); I10 Essential (primary) hypertension; F17.200 Nicotine dependence, unspecified, uncomplicated; Z91.048 Other nonmedicinal substance allergy status; Z88.0 Allergy status to penicillin; Z79.899 Other long term (current) drug therapy
CPT/HCPCS: 36415; 74177; 80053; 81001; 83690; 85025; 96361; 96375; 99284-25; A9270; J1170; J2405; J7030; Q9967

== ENCOUNTER 2022-01-10 16:13 | Emergency (ER) | payer OTHER ==
[~2022-01-10] VITALS: Ht 170.2 cm; Wt 97.6 kg
[~2022-01-10 16:13] MED LIST changes: +CARAFATE1 GM PO; +PROTONIX40 MG PO
--- OUTSIDE RECORDS SUMMARY | 2022-01-10 16:16 | XMS ---
PreManage Notification: TONEY HAY Security Printing Press Operator Events No recent Security Events currently on file CRITERIA MET - PDMP - 6 ED Visits in 6 Months - [facility] - 2 Visits in 30 Days CARE PROVIDERS CHRISTOFER NEGRON Physician 04/21/2021-Current PHONE: Unknown Gautam has no Care Guidelines for this patient. Lakshmi VISIT COUNT (12 MO.) [address] [place] [address] TOTAL 8 NOTE: Visits indicate total known visits. ED/UCC VISIT TRACKING (12 MO.) 01/10/2022 16:14 [facility] [place] TYPE: Emergency COMPLAINT: - LOWER ABD PAIN 12/16/2021 18:53 [facility] [place] TYPE: Emergency COMPLAINT: - CHEST PAIN DIAGNOSES: - Other termite inspector (current) drug therapy - Gastritis, unspecified, without bleeding - Pure hypercholesterolemia, unspecified - Allergy status to penicillin - Essential (primary) hypertension - Bee allergy status - Nicotine dependence, unspecified, uncomplicated - Chest pain, unspecified 10/22/2021 18:40 [facility] [place] TYPE: Emergency COMPLAINT: - FALL DIAGNOSES: - Allergy status to penicillin - Bee allergy status - Contusion of right front wall of thorax, initial encounter - Essential (primary) hypertension - Unspecified fall, initial encounter - Nicotine dependence, unspecified, uncomplicated - Other termite inspector (current) drug therapy - Unspecified injury of thorax, initial encounter 09/29/2021 19:19 [facility] [place] TYPE: Emergency COMPLAINT: - ABDOMINAL PAIN DIAGNOSES: - Other group home (current) drug therapy - Nicotine dependence, unspecified, uncomplicated - Essential (primary) hypertension - Lower abdominal pain, unspecified - Other nonmedicinal substance allergy status - Allergy status to penicillin - Diverticulitis of large intestine without perforation or abscess without bleeding 07/25/2021 20:45 [facility] [place] TYPE: Emergency COMPLAINT: - FLANK PAIN DIAGNOSES: - Nicotine dependence, unspecified, uncomplicated - jail (current) use of systemic steroids - Diverticulitis of large intestine without perforation or abscess without bleeding - Pure hypercholesterolemia, unspecified - Other termite inspector (current) drug therapy - Bee allergy status - Essential (primary) hypertension - Right lower quadrant pain - Allergy status to penicillin 07/20/2021 10:18 [facility] [place] TYPE: Emergency COMPLAINT: - FEVER, CHEST BURNING, COUGH, CONGESTION DIAGNOSES: - Pure hypercholesterolemia, unspecified - Contact with and (suspected) exposure to COVID-19 - Allergy status to penicillin - Acute bronchitis, unspecified - Essential (primary) hypertension - Bee allergy status - Nicotine dependence, unspecified, uncomplicated - Other group home (current) drug therapy - Cough, unspecified 06/18/2021 22:57 [facility] [place] TYPE: Emergency COMPLAINT: - LOWER ABD PAIN DIAGNOSES: - Lower abdominal pain, unspecified - Pure hypercholesterolemia, unspecified - Diverticulitis of large intestine without perforation or abscess without bleeding - Allergy status to penicillin - Bee allergy status - Nicotine dependence, unspecified, uncomplicated - Essential (primary) hypertension - Other termite inspector (current) drug therapy 04/19/2021 19:43 [facility] [place] TYPE: Emergency COMPLAINT: - FALL,LACERATION DIAGNOSES: - Unspecified injury of face, initial encounter - Other group home (current) drug therapy - Essential (primary) hypertension - Bee allergy status - Laceration without foreign body of other part of head, initial encounter - Unspecified fall, initial encounter - Nicotine dependence, unspecified, uncomplicated - Pure hypercholesterolemia, unspecified - Allergy status to penicillin - Striking against or struck by other objects, initial encounter INPATIENT VISIT TRACKING ( MO.) No inpatient visits to display in this time frame [id number]
[2022-01-10] MEDS ORDERED: OXYCODONE-ACET1 EAC1 PO (16:34)
[2022-01-10] MEDS ORDERED: CIPRO500 MG PO (20:12)
[2022-01-10] MEDS ORDERED: COLACE100 MG PO (20:12)
[2022-01-10] MEDS ORDERED: METRONIDAZOLE500 MG PO (20:12)
== END 2022-01-10 20:24 | disposition home or self-care (01) ==
LOC: ED 16:13
DX: K57.32 Diverticulitis of large intestine without perforation or abscess without bleeding (principal); I10 Essential (primary) hypertension; E78.00 Pure hypercholesterolemia, unspecified; F17.200 Nicotine dependence, unspecified, uncomplicated; Z88.0 Allergy status to penicillin; Z91.030 Bee allergy status; Z79.899 Other long term (current) drug therapy
CPT/HCPCS: 36415; 74177; 80053; 81001; 85025; 85060; 96375; 99284-25; J1170; J2405; J7030; Q9967

== ENCOUNTER 2022-01-12 14:42 | Emergency (ER) | payer OTHER ==
[~2022-01-12] VITALS: Ht 170.2 cm; Wt 97.6 kg
[~2022-01-12 14:42] MED LIST changes: +COLACE100 MG PO; +OXYCODONE-ACET1 EAC1 PO
--- OUTSIDE RECORDS SUMMARY | 2022-01-12 14:44 | XMS ---
PreManage Notification: TONEY HAY Security It Applications Analyst Events No recent Security Events currently on file CRITERIA MET - [facility] - 2 Visits in 30 Days - 6 ED Visits in 6 Months - [facility] [place] CARE PROVIDERS CHRISTOFER NEGRON Physician 04/21/2021-Current PHONE: Unknown Gautam has no Care Guidelines for this patient. Lakshmi VISIT COUNT (12 MO.) [address] [place] [address] TOTAL 9 NOTE: Visits indicate total known visits. ED/UCC VISIT TRACKING (12 MO.) 01/12/2022 14:43 [facility] [place] TYPE: Emergency COMPLAINT: - DIZZINESS 01/10/2022 16:14 [facility] [place] TYPE: Emergency COMPLAINT: - LOWER ABD PAIN 12/16/2021 18:53 [facility] [place] TYPE: Emergency COMPLAINT: - CHEST PAIN DIAGNOSES: - Gastritis, unspecified, without bleeding - Pure hypercholesterolemia, unspecified - Allergy status to penicillin - Essential (primary) hypertension - Bee allergy status - Nicotine dependence, unspecified, uncomplicated - Chest pain, unspecified - Other [facility] (current) drug therapy 10/22/2021 18:40 [facility] [place] TYPE: Emergency COMPLAINT: - FALL DIAGNOSES: - Bee allergy status - Contusion of right front wall of thorax, initial encounter - Essential (primary) hypertension - Unspecified fall, initial encounter - Nicotine dependence, unspecified, uncomplicated - Other [facility] (current) drug therapy - Unspecified injury of thorax, initial encounter - Allergy status to penicillin 09/29/2021 19:19 [facility] [place] TYPE: Emergency COMPLAINT: - ABDOMINAL PAIN DIAGNOSES: - Nicotine dependence, unspecified, uncomplicated - Essential (primary) hypertension - Lower abdominal pain, unspecified - Other nonmedicinal substance allergy status - Allergy status to penicillin - Diverticulitis of large intestine without perforation or abscess without bleeding - Other long term care phlebotomist (current) drug therapy 07/25/2021 20:45 [facility] [place] TYPE: Emergency COMPLAINT: - FLANK PAIN DIAGNOSES: - terminal make up operator (current) use of systemic steroids - Diverticulitis of large intestine without perforation or abscess without bleeding - Pure hypercholesterolemia, unspecified - Other [facility] (current) drug therapy - Bee allergy status - Essential (primary) hypertension - Right lower quadrant pain - Allergy status to penicillin - Nicotine dependence, unspecified, uncomplicated 07/20/2021 10:18 [facility] [place] [facility] [place] TYPE: Emergency COMPLAINT: - FEVER, CHEST BURNING, COUGH, CONGESTION DIAGNOSES: - Contact with and (suspected) exposure to COVID-19 - Allergy status to penicillin - Acute bronchitis, unspecified - Essential (primary) hypertension - Bee allergy status - Nicotine dependence, unspecified, uncomplicated - Other [facility] (current) drug therapy - Cough, unspecified - Pure hypercholesterolemia, unspecified 06/18/2021 22:57 [facility] [place] TYPE: Emergency COMPLAINT: - LOWER ABD PAIN DIAGNOSES: - Pure hypercholesterolemia, unspecified - Diverticulitis of large intestine without perforation or abscess without bleeding - Allergy status to penicillin - Bee allergy status - Nicotine dependence, unspecified, uncomplicated - Essential (primary) hypertension - Other long term care phlebotomist (current) drug therapy - Lower abdominal pain, unspecified 04/19/2021 19:43 [facility] [place] TYPE: Emergency COMPLAINT: - FALL,LACERATION DIAGNOSES: - Other [facility] (current) drug therapy - Essential (primary) hypertension - Bee allergy status - Laceration without foreign body of other part of head, initial encounter - Unspecified fall, initial encounter - Nicotine dependence, unspecified, uncomplicated - Pure hypercholesterolemia, unspecified - Allergy status to penicillin - Striking against or struck by other objects, initial encounter - Unspecified injury of face, initial encounter INPATIENT VISIT TRACKING (12 MO.) No inpatient visits to display in this time frame [email or web address]
[2022-01-12] MEDS ORDERED: ENULOSE10 GM/15 M PO (18:44)
== END 2022-01-12 19:22 | disposition home or self-care (01) ==
LOC: ED 14:42
DX: K59.00 Constipation, unspecified (principal); K57.32 Diverticulitis of large intestine without perforation or abscess without bleeding; I10 Essential (primary) hypertension; E78.00 Pure hypercholesterolemia, unspecified; F43.10 Post-traumatic stress disorder, unspecified; F17.200 Nicotine dependence, unspecified, uncomplicated; Z91.030 Bee allergy status; Z88.0 Allergy status to penicillin; Z79.899 Other long term (current) drug therapy
CPT/HCPCS: 36415; 74176; 80053; 83690; 85025; 96374; 96375; 96376; 99284-25; J0744; J1885; J2405; J7030

== ENCOUNTER 2022-03-03 01:23 | Emergency (ER) | payer OTHER ==
[~2022-03-03] VITALS: Ht 170.2 cm; Wt 95.4 kg
[~2022-03-03 01:23] MED LIST changes: +ENULOSE10 GM/15 M PO
--- OUTSIDE RECORDS SUMMARY | 2022-03-03 01:26 | XMS ---
PreManage Notification: TONEY HAY Security Director Of Accounting Events No recent Security Events currently on file CRITERIA MET - PDMP - 6 ED Visits in 6 Months CARE PROVIDERS CHRISTOFER NEGRON Physician Bag Tester 04/21/2021-Current PHONE: Unknown Gautam has no Care Guidelines for this patient. Lakshmi VISIT COUNT (12 MO.) 11 RAHTA Lama TOTAL 11 NOTE: Visits indicate total known visits. ED/UCC VISIT TRACKING (12 MO.) 03/03/2022 01:24 RA[facility] Rajput [place] TYPE: Emergency COMPLAINT: - RIGHT SHOULDER PAIN 01/18/2022 17:05 RAH[facility] Rajput [place] TYPE: Emergency COMPLAINT: - DIZZINESS DIAGNOSES: - Palpitations - Other intermodal truck driver (current) drug therapy - Bee allergy status - Nicotine dependence, unspecified, uncomplicated - Allergy status to penicillin - Allergy status to other antibiotic agents - Essential (primary) hypertension - Pure hypercholesterolemia, unspecified - Dehydration 01/12/2022 14:43 RAHAT Rajput [place] TYPE: Emergency COMPLAINT: - DIZZINESS DIAGNOSES: - Pure hypercholesterolemia, unspecified - Allergy status to penicillin - Diverticulitis of large intestine without perforation or abscess without bleeding - Essential (primary) hypertension - Other half-way (current) drug therapy - Post-traumatic stress disorder, unspecified - Bee allergy status - Nicotine dependence, unspecified, uncomplicated - Constipation, unspecified 01/10/2022 16:14 RAH[facility] Rajput [place] TYPE: Emergency COMPLAINT: - LOWER ABD PAIN DIAGNOSES: - Pure hypercholesterolemia, unspecified - Allergy status to penicillin - Diverticulitis of large intestine without perforation or abscess without bleeding - Other intermodal truck driver (current) drug therapy - Essential (primary) hypertension - Left lower quadrant pain - Bee allergy status - Nicotine dependence, unspecified, uncomplicated 12/16/2021 18:53 RAHAT Rajput OR TYPE: Emergency COMPLAINT: - CHEST PAIN DIAGNOSES: - Bee allergy status - Nicotine dependence, unspecified, uncomplicated - Chest pain, unspecified - Other intermodal truck driver (current) drug therapy - Gastritis, unspecified, without bleeding - Pure hypercholesterolemia, unspecified - Allergy status to penicillin - Essential (primary) hypertension 10/22/2021 18:40 RAHAT Rajput OR TYPE: Emergency COMPLAINT: - FALL DIAGNOSES: - Nicotine dependence, unspecified, uncomplicated - Other intermodal truck driver (current) drug therapy - Unspecified injury of thorax, initial encounter - Allergy status to penicillin - Bee allergy status - Contusion of right front wall of thorax, initial encounter - Essential (primary) hypertension - Unspecified fall, initial encounter 09/29/2021 19:19 RAH[facility] Rajput [place] TYPE: Emergency COMPLAINT: - ABDOMINAL PAIN DIAGNOSES: - Allergy status to penicillin - Diverticulitis of large intestine without perforation or abscess without bleeding - Other intermodal truck driver (current) drug therapy - Nicotine dependence, unspecified, uncomplicated - Essential (primary) hypertension - Lower abdominal pain, unspecified - Other nonmedicinal substance allergy status 07/25/2021 20:45 RAH[facility] Rajput [place] TYPE: Emergency COMPLAINT: - FLANK PAIN DIAGNOSES: - Essential (primary) hypertension - Right lower quadrant pain - Allergy status to penicillin - Nicotine dependence, unspecified, uncomplicated - termite helper (current) use of systemic steroids - Diverticulitis of large intestine without perforation or abscess without bleeding - Pure hypercholesterolemia, unspecified - Other half-way (current) drug therapy - Bee allergy status 07/20/2021 10:18 RAH[facility] Rajput [place] TYPE: Emergency COMPLAINT: - FEVER, CHEST BURNING, COUGH, CONGESTION DIAGNOSES: - Nicotine dependence, unspecified, uncomplicated - Other intermodal truck driver (current) drug therapy - Cough, unspecified - Pure hypercholesterolemia, unspecified - Contact with and (suspected) exposure to COVID-19 - Allergy status to penicillin - Acute bronchitis, unspecified - Essential (primary) hypertension - Bee allergy status 06/18/2021 22:57 RAHAT Rajput OR TYPE: Emergency COMPLAINT: - LOWER ABD PAIN DIAGNOSES: - Nicotine dependence, unspecified, uncomplicated - Essential (primary) hypertension - Other intermodal truck driver (current) drug therapy - Lower abdominal pain, unspecified - Pure hypercholesterolemia, unspecified - Diverticulitis of large intestine without perforation or abscess without bleeding - Allergy status to penicillin - Bee allergy status 04/19/2021 19:43 RAH[facility] Rajput [place] TYPE: Emergency COMPLAINT: - FALL,LACERATION DIAGNOSES: - Nicotine dependence, unspecified, uncomplicated - Pure hypercholesterolemia, unspecified - Allergy status to penicillin - Striking against or struck by other objects, initial encounter - Unspecified injury of face, initial encounter - Other intermodal truck driver (current) drug therapy - Essential (primary) hypertension - Bee allergy status - Laceration without foreign body of other part of head, initial encounter - Unspecified fall, initial encounter INPATIENT VISIT TRACKING (12 MO.) No inpatient visits to display in this time frame [email or web address]
== END 2022-03-03 02:15 | disposition home or self-care (01) ==
LOC: ED 01:23
DX: G89.18 Other acute postprocedural pain (principal); M25.511 Pain in right shoulder; I10 Essential (primary) hypertension; E78.00 Pure hypercholesterolemia, unspecified; F17.200 Nicotine dependence, unspecified, uncomplicated; Z91.030 Bee allergy status; Z88.1 Allergy status to other antibiotic agents; Z88.0 Allergy status to penicillin; Z79.899 Other long term (current) drug therapy
CPT/HCPCS: 99283

== ENCOUNTER 2022-04-03 06:44 | Day surgery (SDC) | payer OTHER ==
[~2022-04-03] VITALS: Ht 170.2 cm; Wt 100.9 kg
[~2022-04-03 06:44] MED LIST changes: +MELATONIN10 MG PO
[2022-04-03] MEDS ORDERED: PROZAC10 MG PO (07:05)
[2022-04-03] MEDS ORDERED: PEPCID AC10 MG PO (07:06)
--- NOTE | 2022-04-03 08:36 | NUR ---
WENT TO CHECK ON PT, SHE IS ASLEEP, SHE DID NOT HEAR ME WALK IN, DID NOT DISTURB HER.
--- NOTE | 2022-04-03 08:50 | NUR ---
CHECKED ON PT, GAVE HER UPDATE ON DELAY OF PROCEDURE. SHE IS GETTING RESTLESS REASURED HER IT SHOULD NOT BE MUCH LONGER.
--- NOTE | 2022-04-03 09:21 | NUR ---
PT VERY ANXIOUS AND UPSET ABOUT WAIT. SPOKE WITH TRACTOR MECHANIC APPRENTICE, VERSED GIVEN.
--- NOTE | 2022-04-03 10:28 | NUR ---
04/03/22 1028 Doris Santa 1025 PATIENT ARRIVES TO PACU AWAKE. C/O ABD PAIN. ENCOURAGED TO PASS GAS. PATIENT ABLE TO PASS GAS, PAIN RESOLVED. RESP EVEN AND UNLABORED, ROOM AIR SATS >93%.
--- NOTE | 2022-04-04 11:03 | OR ---
[facility] [address], [place] [address] Signed DATE OF OPERATION: 04/03/2022 SURGEON: Fede Ball MD PREOPERATIVE DIAGNOSES: 1. Recurrent left lower abdominal pain, presumed diverticulitis. 2. Distant history of hyperplastic polyp at 40 cm (2012). 3. Chronic alcoholism. POSTOPERATIVE DIAGNOSES: 1. Minimal sigmoid diverticulosis. 2. Small polyp of cecum. PROCEDURE: Total colonoscopy to cecum with cold morcellation, excision of cecal polyp x1. ANESTHESIA: Propofol infusion, Get [place] CRNA INDICATIONS: This 61-year-old white woman is a patient of SONG Duvall. She has had recurrent bouts of left lower abdominal pain, considered likely to be recurrent diverticulitis. She has distant history of colonoscopy in 2012, which showed only a hyperplastic polyp at 40 cm and no evidence of diverticulosis at that time. She has no family history of colon cancer and no current complaints of rectal bleeding. She is admitted at this time to undergo colonoscopy to better characterize the issues of her left lower abdominal pain specifically to assess for malignancy. Given her alcoholism, advanced anesthesia support is necessary. The risk of bleeding, infection, and perforation related to colonoscopy were reviewed with her, she understands and wished to proceed. FINDINGS: The prep was good. Complete colonoscopy was undertaken to the cecum. There was a small polyp of the cecum, which was excised with cold morcellation technique. There were few scattered diverticula of the sigmoid colon, but it was not extensive. There is certainly no sign of neoplasm, colitis, or other abnormality. DESCRIPTION OF PROCEDURE: The patient was brought to the surgical endoscopy suite and placed in the lateral decubitus position, given intravenous sedation with full cardiopulmonary monitoring and propofol infusional sedation by the head girls golf coach. A digital rectal examination was found Electronically Signed By: FEDE BALL MD 04/04/22 1103 PATIENT NAME: TONEY HAY OPERATIVE REPORT DATE OF : 62 REPORT #: [id number] PHYSICIAN: FEDE BALL MD PCP: CHRISTOFER NEGRON REPORT IS CONFIDENTIAL AND NOT TO BE RELEASED WITHOUT AUTHORIZATION [facility] [address], [place] [address] Signed to be normal. An Olympus video colonoscope was passed in the rectum and manipulated throughout the colon noting a few scattered diverticula of the sigmoid. Scope was ultimately advanced to the cecum. There was a small cecal polyp which appeared adenomatous. This was excised with cold morcellation technique. The scope was then withdrawn and examination throughout undertaken showed surprisingly normal colon except for a few scattered diverticula of the sigmoid, none of them were wide-mouth. There was no strictures, no scarring, no sign of active inflammation. Retroflexed view of the rectum was normal as well. The scope was removed and the patient was taken to the recovery room in good condition. CONCLUDING DIAGNOSES: 1. Minimal diverticular change. 2. Small polyp, cecum. PLAN: Recommend repeat colonoscopy in 5 years based on the polyp. Recommend high-fiber diet as regards to diverticular disease. MD ELBA Hurley/TIMOTHY /[id number] cc: SONG Duvall Copies: CHRISTOFER NEGRON ~ Electronically Signed By: FEDE BLAL MD 04/04/22 1103 PATIENT NAME: TONEY HAY OPERATIVE REPORT DATE OF : 62 REPORT #: [id number] PHYSICIAN: FEDE BALL MD PCP: CHRISTOFER NEGRON REPORT IS CONFIDENTIAL AND NOT TO BE RELEASED WITHOUT AUTHORIZATION
--- NOTE | 2022-04-06 16:08 | PATH ---
[facility] [address] [place], [place] [address] Signed SPECIMEN(S): A CECUM COLON POLYP SPECIMEN SOURCE: A. CECUM COLON POLYP CLINICAL HISTORY: Hyperplastic polyps, diverticulitis. Post: Diverticulosis, polyp x 1. FINAL PATHOLOGIC DIAGNOSIS: Cecum colon polyp: - Tubular adenoma (one fragment). JVR:[email or web address]:[email or web address] MICROSCOPIC EXAMINATION: Histologic sections of all submitted blocks are examined by light microscopy. These findings, together with the gross examination, support the pathologic diagnosis. GROSS DESCRIPTION: The specimen, labeled and designated "Ellyn cecum polyp," is received in formalin and consists of two bell soft tissue fragments, ranging from 0.2 cm. Entirely submitted in (A1). JS (under the direct supervision of a pathologist) The Gross Description was prepared using a voice recognition system. The report was reviewed for accuracy; however, sound-alike word errors, addition and/or deletions may occur. If there is any question about this report, please contact Client Services. PERFORMING LABORATORY: The technical component was performed by [facility], [address] [place] [id number] (CLIA# [id number]). Professional interpretation was performed by [facility] - [facility], [address] [place] [id number] (CLIA#: [id number]). Diagnostician: Paco Madrigal MD Pathologist Electronically Signed 04/06/2022 PATIENT NAME: TONEY HAY PATHOLOGY DATE OF : 62 REPORT #: [id number] PHYSICIAN: NAEEM LAM PCP: CHRISTOFER NEGRON REPORT IS CONFIDENTIAL AND NOT TO BE RELEASED WITHOUT AUTHORIZATION
== END 2022-04-03 11:00 | disposition home or self-care (01) ==
LOC: DS 06:44 → OPS 06:44 → DS 10:30 → OPS 10:30
PROVIDERS: ATTEND Surgery
PROC: 0DBH8ZX Excision of Cecum, Via Natural or Artificial Opening Endoscopic, Diagnostic (ICD-10-PCS; principal; 2022-04-03 09:30)
DX: D12.0 Benign neoplasm of cecum (principal); K57.30 Diverticulosis of large intestine without perforation or abscess without bleeding; F10.20 Alcohol dependence, uncomplicated; I10 Essential (primary) hypertension; F17.210 Nicotine dependence, cigarettes, uncomplicated; K21.9 Gastro-esophageal reflux disease without esophagitis; Z88.1 Allergy status to other antibiotic agents; Z88.0 Allergy status to penicillin
CPT/HCPCS: J2250; J2704; J7121

== ENCOUNTER 2023-12-29 17:50 | Emergency (ER) | payer OTHER ==
[~2023-12-29] VITALS: Ht 170.2 cm; Wt 103.1 kg
[~2023-12-29 17:50] MED LIST changes: +PEPCID AC10 MG PO; +PROZAC10 MG PO
[2023-12-29] MEDS ORDERED: HYDROXYZINE HCL25 MG PO (18:10)
[2023-12-29] MEDS ORDERED: CYCLOBENZAPRINE10 MG PO (20:44)
[2023-12-29 20:50] VITALS: BP 161/88
== END 2023-12-29 20:50 | disposition home or self-care (01) ==
LOC: ED 17:50
DX: S09.90XA Unspecified injury of head, initial encounter (principal); I10 Essential (primary) hypertension; E78.00 Pure hypercholesterolemia, unspecified; F17.200 Nicotine dependence, unspecified, uncomplicated; Z88.1 Allergy status to other antibiotic agents; Z88.0 Allergy status to penicillin; Z91.038 Other insect allergy status; Z79.899 Other long term (current) drug therapy; W20.8XXA Other cause of strike by thrown, projected or falling object, initial encounter
CPT/HCPCS: 70450; 99283-25

== ENCOUNTER 2024-05-10 15:40 | Emergency (ER) | payer OTHER ==
[~2024-05-10] VITALS: Ht 170.2 cm; Wt 102.1 kg
[~2024-05-10 15:40] MED LIST changes: +CYCLOBENZAPRINE10 MG PO; +HYDROXYZINE HCL25 MG PO
[2024-05-10 18:46] LABS: BASOPHILS 0.6 % (0-2); EOSINOPHILS 2.9 % (0-6); HEMATOCRIT 40.3 % (35.0-50.0); HEMOGLOBIN 14.4 g/dL (12.0-18.0); LYMPHOCYTES 12.1 % (24-44); MCH 30.7 (27-36); MCHC 35.8 g/dl (30-36); MCV 85.8 fl (81-99); MONOCYTES 8.4 % (0-12); PLATELET COUNT 321 K/uL (140-440); RDW 12.9 (10.5-15.0)
[2024-05-10 19:03] LABS: ALBUMIN/GLOBULIN RATIO 1.14 (1.1-2.4); ALKALINE PHOSPHATASE 103 U/L (46-116); ALT (SGPT) 39 U/L (14-59); ANION GAP 12.9 (7-21); AST (SGOT) 23 U/L (15-37); BILIRUBIN, TOTAL 0.3 mg/dL (0.2-1.0); BUN/CREATININE RATIO 11.53 (6.0-28.6); CALCIUM 9.6 mg/dL (8.5-10.1); CARBON DIOXIDE 25 mmol/L (21-32); CHLORIDE 101 mmol/L (98-107); CREATININE, SERUM 0.78 mg/dL (0.55-1.02); GLOMERULAR FILTRATION RATE,EST 86 mL/min (>60); POTASSIUM 3.9 mmol/L (3.5-5.1); PROTEIN, TOTAL 7.5 g/dL (6.4-8.2); UREA NITROGEN 9 mg/dL (7-18)
[2024-05-10 19:23] LABS: CORONAVIRUS COVID-19 AG NEGATIVE (NEGATIVE); INFLUENZA A AG NEGATIVE (NEGATIVE); INFLUENZA B AG NEGATIVE (NEGATIVE)
[2024-05-10] MEDS ORDERED: ALBUTEROL SULFATE 8 GM HOME.PACK INH ONE (19:45)
[2024-05-10] MEDS ORDERED: GUAIFENESIN/CODEINE 60 ML HOME.PACK PO ONE (19:45)
[2024-05-10] MEDS ORDERED: methylPREDNISolone 4 MG HOME.PACK PO ONE (19:45)
[2024-05-10] MEDS ORDERED: INHALER, ASSIST DEVICES 1 EACH SPACER MISC ONE (19:45)
[2024-05-10 20:25] VITALS: BP 163/85
--- NOTE | 2024-05-12 12:55 | EKG ---
[facility] [address] [facility] [place] [address] Signed Normal sinus rhythm Normal ECG When compared with ECG of 30-MAR-2022 14:09, No significant change was found Confirmed by Art Mcdonald DO ([id number]) on 05/12/2024 12:55:39 PM Electronically Signed By: RAT MCDONALD DO 05/12/24 1255 PATIENT NAME: TONEY HAY ROGER Electrocardiogram DATE OF : 62 PHYSICIAN: ART MCDONALD DO REPORT #: [id number] REPORT IS CONFIDENTIAL AND NOT TO BE RELEASED WITHOUT AUTHORIZATION
== END 2024-05-10 20:25 | disposition home or self-care (01) ==
LOC: ED 15:40
PROVIDERS: Emergency Medicine
DX: J40 Bronchitis, not specified as acute or chronic (principal); I10 Essential (primary) hypertension; E78.00 Pure hypercholesterolemia, unspecified; F17.200 Nicotine dependence, unspecified, uncomplicated; Z88.0 Allergy status to penicillin; Z88.1 Allergy status to other antibiotic agents; Z91.030 Bee allergy status; Z79.899 Other long term (current) drug therapy
CPT/HCPCS: 36415; 71045; 80053; 83735; 84484; 85025; 93005; 93010; 94640; 94664; 99285-25

== ENCOUNTER 2024-09-30 07:16 | Emergency (ER) | payer OTHER ==
[~2024-09-30] VITALS: Ht 170.2 cm; Wt 96.8 kg
[2024-09-30 08:09] LABS: BASOPHILS 0.6 % (0.1-1.2); EOSINOPHILS 1.9 % (0.7-5.8); LYMPHOCYTES 29.0 % (19.3-51.7); MCH 29.5 PG (25.6-32.2); MCHC 34.6 g/dL (32.2-35.5); MCV 85.1 fL (79.4-94.8); MONOCYTES 8.6 % (4.7-12.5); NEUTROPHILS 59.5 % (34.0-71.1); RBC 3.90 M/uL (3.93-5.22)
[2024-09-30 08:20] LABS: INR 0.95 (0.80-1.30); PROTIME 12.3 Sec (11.2-14.2)
[2024-09-30 08:25] LABS: ALT (SGPT) 26.0 U/L (14-59); AST (SGOT) 10.0 U/L (15-37); GLOMERULAR FILTRATION RATE,EST 99.0 mL/min (>60); PROTEIN, TOTAL 6.5 g/dL (6.4-8.2); UREA NITROGEN 12.0 mg/dL (7-18)
[2024-09-30] MEDS ORDERED: ONDANSETRON 4 MG TAB ODT SL ONE (10:15)
[2024-09-30] MEDS ORDERED: HYDROCODONE/ACETA 5/325 TAB PO ONE (10:15)
[2024-09-30 10:35] VITALS: BP 128/68
== END 2024-09-30 10:37 | disposition home or self-care (01) ==
LOC: ED 07:16
PROVIDERS: Emergency Medicine
DX: S70.12XA Contusion of left thigh, initial encounter (principal); S80.02XA Contusion of left knee, initial encounter; V89.2XXA Person injured in unspecified motor-vehicle accident, traffic, initial encounter; E78.00 Pure hypercholesterolemia, unspecified; I10 Essential (primary) hypertension; F43.10 Post-traumatic stress disorder, unspecified; F17.200 Nicotine dependence, unspecified, uncomplicated; Z79.51 Long term (current) use of inhaled steroids; Z79.899 Other long term (current) drug therapy; Z91.030 Bee allergy status; Z88.0 Allergy status to penicillin; Z88.1 Allergy status to other antibiotic agents
CPT/HCPCS: 36415; 73560; 76882; 80053; 85025; 85610; 99283; A9270

== ENCOUNTER 2025-01-10 10:58 | Emergency (ER) | payer OTHER ==
[~2025-01-10] VITALS: Ht 170.2 cm; Wt 105.4 kg
[2025-01-10] MEDS ORDERED: HYDROCODONE/APAP 10/325 1 TAB PO ONE (11:45)
[2025-01-10 13:02] VITALS: BP 113/61
== END 2025-01-10 13:02 | disposition home or self-care (01) ==
LOC: ED 10:58
DX: M25.511 Pain in right shoulder (principal); I10 Essential (primary) hypertension; F17.200 Nicotine dependence, unspecified, uncomplicated; Z88.0 Allergy status to penicillin; Z79.899 Other long term (current) drug therapy
CPT/HCPCS: 73030; 99283; A9270